=== PATIENT | female | born 1955 | race Caucasian/White ===

== ENCOUNTER 2020-10-16 09:15 | Inpatient (IN) | payer MEDICARE, OTHER ==
[2020-10-16] MEDS ORDERED: Sodium Chloride 0.9% 10 ML Syringe FLUSH PRN ×3 (10:01→16:16)
[2020-10-16] MEDS ORDERED: Albuterol/Ipratropium 4 GM Inhalation Spray INH STA (10:03)
--- NOTE | 2020-10-16 10:06 | EDM.PDOC ---
ED HPI GENERAL MEDICAL PROBLEM - General Chief Complaint: Respiratory Problem Stated Complaint: COUGHED UP BLOOD THIS AM Time Seen by Provider: 10/16/20 09:56 Source of Information: Reports: Patient, Family, RN Notes Reviewed History Limitations: Reports: No Limitations - History of Present Illness INITIAL COMMENTS - FREE TEXT/NARRATIVE: 65-year-old female presents emergency department a complaint of shortness of breath and coughing up blood. Does have known history of COPD received her Covid shot middle of September this was the second 1. She states over the last couple days been feeling more short of breath has had chills at night no chest pain no nausea vomiting - Related Data Allergies Allergy/AdvReac Type Severity Reaction Status Date / Time Iodinated Contrast Media Allergy Severe Anaphylactic Verified 10/16/20 12:21 [Iodinated Contrast- Oral Shock and IV Dye] oxycodone Allergy Severe Difficulty Verified 10/16/20 12:21 Breathing codeine Allergy Hives Verified 06/03/18 17:39 glimepiride [From Amaryl] Allergy Facial Verified 06/03/18 17:39 Swelling hydroxyzine [From Vistaril] Allergy Facial Verified 06/03/18 17:39 Swelling iodine Allergy Blisters Verified 06/03/18 17:39 povidone-iodine Allergy Blisters Verified 06/03/18 17:39 [From Betadine] soap [From Betadine] Allergy Blisters Verified 06/03/18 17:39 Sulfa (Sulfonamide Allergy Hives Verified 06/03/18 17:39 Antibiotics) Home Meds: Home Meds Celecoxib 1 tab PO DAILY PRN 06/03/18 [History] Cyclobenzaprine [Flexeril] 1 tab PO BEDTIME 06/03/18 [History] Furosemide 1 tab PO ASDIRECTED 06/03/18 [History] Gabapentin [Neurontin] 1 cap PO ASDIRECTED 06/03/18 [History] Modafinil [Provigil] 1 tab PO BID 06/03/18 [History] Pramipexole [Mirapex] 1 tab PO BID 06/03/18 [History] Warfarin Sodium [Jantoven] 1 each PO ASDIRECTED 06/03/18 [History] EPINEPHrine HCl in 0.9 % NaCL [Epinephrine 1 mg/10 ml-Ns Syr] 1 ea IM DAILY PRN 10/16/20 [History] Empagliflozin [Jardiance] 1 tab PO DAILY 10/16/20 [History] Fluticasone/Salmeterol [Advair 100-50] 1 puff INH BID 10/16/20 [History] Hydrocodone/Acetaminophen [Hydrocodon-Acetaminophn 10-325] 1 tab PO Q4H PRN 10/16/20 [History] Metoprolol Tartrate 25 mg PO BID 10/16/20 [History] OLANZapine [Olanzapine] 5 mg PO BID 10/16/20 [History] Past Medical History HEENT History: Reports: Impaired Vision Cardiovascular History: Reports: Afib, Arrhythmia Respiratory History: Reports: Sleep Apnea, Other (See Below) Other Respiratory History: histoplasmosis, lung nodule that has changed Gastrointestinal History: Reports: Chronic Diarrhea, Colon Polyp, Diverticulosis, GERD Genitourinary History: Reports: Acute Renal Failure, UTI, Recurrent EDGE INKER HEELS History: Reports: , Spontaneous Musculoskeletal History: Reports: Fibromyalgia Other Musculoskeletal History: ostepenia Neurological History: Reports: MS Psychiatric History: Reports: Depression Endocrine/Metabolic History: Reports: Diabetes, Type II, Obesity/BMI 30+ Do You Have Enough Pump Supplies for Your Hospital Stay: No Hematologic History: Reports: Anticoagulation Therapy Oncologic (Cancer) History: Reports: None Dermatologic History: Reports: Other (See Below) Other Dermatologic History: bolous pepagoid (blisters on legs) - Past Surgical History HEENT Surgical History: Reports: Tonsillectomy Cardiovascular Surgical History: Reports: Pacer Other Cardiovascular Surgeries/Procedures: pacer for vfib with defibrilator - has not gone off. GI Surgical History: Reports: Appendectomy, Cholecystectomy, Colonoscopy, Hernia Repair/Other Female Surgical History: Reports: Hysterectomy, Salpingo-Oophorectomy Musculoskeletal Surgical History: Reports: Knee Replacement, Shoulder Surgery, Other (See Below) Other Musculoskeletal Surgeries/Procedures:: 2 surgeries on left shoulder for torn rotator, 3 surgeries on right shoulder. Social & Family History - Family History Family Medical History: No Pertinent Family History - Caffeine Use Caffeine Use: Reports: Coffee ED ROS GENERAL - Review of Systems Review Of Systems: See Below Constitutional: Reports: Chills HEENT: Reports: No Symptoms Respiratory: Reports: Shortness of Breath, Cough, Hemoptysis Cardiovascular: Reports: Dyspnea on Exertion. Denies: Chest Pain GI/Abdominal: Reports: No Symptoms ED EXAM, GENERAL - Physical Exam Exam: See Below Exam Limited By: No Limitations General Appearance: Alert, WD/WN, No Apparent Distress Respiratory/Chest: No Respiratory Distress, Decreased Breath Sounds, Crackles Cardiovascular: No Murmur, Irregularly Irregular GI/Abdominal: Soft, Non-Tender #1 Interpretation EKG Date: 10/16/20 Time: 10:45 Rhythm: A-Fib [place]: LAD-Left Rowland Deviation P-Wave: Absent QRS: Normal ST-T: Normal QT: Normal Comparison: NA - No Prior EKG Course - Vital Signs Last Recorded V/S: Last Vital Signs Temp 99.3 F 10/16/20 09:33 Pulse 60 10/16/20 12:45 Resp 22 H 10/16/20 09:33 BP 112/60 10/16/20 12:47 Pulse Ox 95 10/16/20 12:45 - Orders/Labs/Meds Orders: Active Orders 24 hr Category Date Time Status EKG Documentation Completion [RC] ASDIRECTED Care 10/16/20 10:01 Active Peripheral IV Care [RC] . DIRECTED Care 10/16/20 10:01 Active RT Post Treatment Assessment [RC] Click to Edit Care 10/16/20 10:03 Active CRP [C-REACTIVE PROTEIN] [CHEM] Stat Lab 10/16/20 14:12 Ordered CULTURE BLOOD [BC] Urgent Lab 10/16/20 13:20 Ordered CULTURE BLOOD [BC] Urgent Lab 10/16/20 13:20 Ordered LACTIC ACID [CHEM] Stat Lab 10/16/20 14:12 Ordered PROCALCITONIN [CHEM] Stat Lab 10/16/20 14:12 Ordered Sodium Chloride 0.9% [Saline Flush] Med 10/16/20 10:01 Active 10 ml FLUSH ASDIRECTED PRN Blood Culture x2 Reflex Set [OM.PC] Urgent Oth 10/16/20 13:20 Ordered Peripheral IV Insertion Adult [OM.PC] Urgent Oth 10/16/20 10:01 Ordered EKG 12 Lead [EK] Urgent Ther 10/16/20 10:01 Ordered Medication Orders Sodium Chloride (Sodium Chloride 0.9% 10 Ml Syringe) 10 ml FLUSH ASDIRECTED PRN PRN Reason: Keep Vein Open Last Admin: 10/16/20 12:30 Dose: 10 ml Documented by: [email or web address] Labs: Laboratory Tests 10/16/20 10/16/20 10/16/20 Range/Units 10:01 10:03 10:39 WBC 13.7 H (4.5-11.0) K/uL RBC 3.69 (3.30-5.50) M/uL Hgb 11.1 L (12.0-15.0) g/dL Hct 35.9 L (36.0-48.0) % MCV 97 (80-98) fL MCH 30 (27-31) pg MCHC 31 L (32-36) % Plt Count 254 (150-400) K/uL Neut % (Auto) 84 H (36-66) % Lymph % (Auto) 5 L (24-44) % [place] % (Auto) 10 H (2-6) % Eos % (Auto) 0 L (2-4) % Baso % (Auto) 0 (0-1) % PT 21.9 H (9.5-12.0) sec INR 2.04 H (0.80-1.20) D-Dimer, Quantitative (0.0-500.0) ng/mL Sodium (140-148) mmol/L Potassium (3.6-5.2) mmol/L Chloride (100-108) mmol/L Carbon Dioxide (21-32) mmol/L Anion Gap (5.0-14.0) mmol/L BUN (7-18) mg/dL Creatinine (0.6-1.0) mg/dL Est Cr Clr Drug Dosing mL/min Estimated GFR (MDRD) (>60) Glucose (74-106) mg/dL Calcium (8.5-10.1) mg/dL Total Bilirubin (0.2-1.0) mg/dL AST (15-37) U/L ALT (12-78) U/L Alkaline Phosphatase (46-116) U/L Troponin I (0.000-0.056) ng/mL NT-Pro-B Natriuret Pep (5-125) pg/mL Total Protein (6.4-8.2) g/dL Albumin (3.4-5.0) g/dL Globulin (2.3-3.5) g/dL Albumin/Globulin Ratio (1.2-2.2) Influenza Type A RNA Negative (NEGATIVE) RSV RNA (INAAT) Negative (NEGATIVE) Influenza Type B RNA Negative (NEGATIVE) SARS-CoV-2 RNA (DAO) Negative (NEGATIVE) 10/16/20 10/16/20 10/16/20 Range/Units 10:39 10:39 10:39 WBC (4.5-11.0) K/uL RBC (3.30-5.50) M/uL Hgb (12.0-15.0) g/dL Hct (36.0-48.0) % MCV (80-98) fL MCH (27-31) pg MCHC (32-36) % Plt Count (150-400) K/uL Neut % (Auto) (36-66) % Lymph % (Auto) (24-44) % [place] % (Auto) (2-6) % Eos % (Auto) (2-4) % Baso % (Auto) (0-1) % PT (9.5-12.0) sec INR (0.80-1.20) D-Dimer, Quantitative 610.29 H (0.0-500.0) ng/mL Sodium 141 (140-148) mmol/L Potassium 4.0 (3.6-5.2) mmol/L Chloride 102 (100-108) mmol/L Carbon Dioxide 29 (21-32) mmol/L Anion Gap 10.1 (5.0-14.0) mmol/L BUN 25 H (7-18) mg/dL Creatinine 1.3 H (0.6-1.0) mg/dL Est Cr Clr Drug Dosing 38.25 mL/min Estimated GFR (MDRD) 41 L (>60) Glucose 150 H (74-106) mg/dL Calcium 8.7 (8.5-10.1) mg/dL Total Bilirubin 0.9 (0.2-1.0) mg/dL AST 24 (15-37) U/L ALT 23 (12-78) U/L Alkaline Phosphatase 118 H (46-116) U/L Troponin I < 0.017 (0.000-0.056) ng/mL NT-Pro-B Natriuret Pep 6958 H (5-125) pg/mL Total Protein 6.5 (6.4-8.2) g/dL Albumin 3.1 L (3.4-5.0) g/dL Globulin 3.4 (2.3-3.5) g/dL Albumin/Globulin Ratio 0.9 L (1.2-2.2) Influenza Type A RNA (NEGATIVE) RSV RNA (INAAT) (NEGATIVE) Influenza Type B RNA (NEGATIVE) SARS-CoV-2 RNA (DAO) (NEGATIVE) Meds: Medications Generic Name Dose Route Start Last Admin Trade Name Freq PRN Reason Stop Dose Admin Sodium Chloride 10 ml 10/16/20 10:01 10/16/20 12:30 Sodium Chloride 0.9% 10 Ml Syringe FLUSH 10 ml ASDIRECTED PRN Administration Keep Vein Open Discontinued Medications Generic Name Dose Route Start Last Admin Trade Name Freq PRN Reason Stop Dose Admin Albuterol/Ipratropium 1 gm 10/16/20 10:03 10/16/20 10:30 Albuterol/Ipratropium 4 Gm Inhalation [place] INH 10/16/20 10:04 1 gram NOW STA Administration Bumetanide 2 mg 10/16/20 12:35 10/16/20 12:47 Bumetanide 1 Mg/4 Ml Mdv IVPUSH 10/16/20 12:36 2 mg ONETIME ONE Administration Fentanyl 50 mcg 10/16/20 11:19 10/16/20 11:31 Fentanyl 100 Mcg/2 Ml Sdv IVPUSH 10/16/20 11:20 50 mcg ONETIME ONE Administration Azithromycin 500 mg/ Sodium 250 mls @ 250 mls/hr 10/16/20 13:21 10/16/20 14:25 Chloride IV 10/16/20 14:20 250 mls/hr ONETIME ONE Administration Ceftriaxone Sodium 1 gm/ 50 mls @ 100 mls/hr 10/16/20 13:21 10/16/20 13:50 Sodium Chloride IV 10/16/20 13:50 100 mls/hr ONETIME ONE Administration Lorazepam 1 mg 10/16/20 12:35 10/16/20 12:47 Lorazepam 2 Mg/Ml Sdv IVPUSH 10/16/20 12:36 1 mg ONETIME ONE Administration Nitroglycerin 0.4 mg 10/16/20 12:35 10/16/20 12:47 Nitroglycerin 0.4 Mg Tab.Sl SL 10/16/20 12:36 0.4 mg ONETIME ONE Administration Sodium Chloride 10 ml 10/16/20 10:01 Sodium Chloride 0.9% 10 Ml Syringe FLUSH ASDIRECTED PRN Keep Vein Open Departure - Departure Time of Disposition: 14:28 Disposition: Home, Self-Care 01 Condition: Fair Clinical Impression: Community acquired pneumonia Qualifiers: Laterality: right Lung location: lower lobe of lung Qualified Code(s): J18.9 - Pneumonia, unspecified organism - Discharge Information Referrals: PCP,None [Primary Care Provider] - Forms: ED Department Discharge Sepsis Event Note (ED) - Evaluation Sepsis Screening Result: No Definite Risk - Focused Exam Vital Signs: Vital Signs Temp Pulse Resp BP BP Pulse Ox 10/16/20 12:47 112/60 10/16/20 12:45 60 112/60 95 10/16/20 12:22 60 113/61 91 L 10/16/20 09:33 99.3 F 60 22 H 117/51 L 93 L - My Orders Last 24 Hours: My Active Orders 10/16/20 10:01 EKG Documentation Completion [RC] ASDIRECTED Peripheral IV Care [RC] . DIRECTED Sodium Chloride 0.9% [Saline Flush] 10 ml FLUSH ASDIRECTED PRN Peripheral IV Insertion Adult [OM.PC] Urgent EKG 12 Lead [EK] Urgent 10/16/20 10:03 RT Post Treatment Assessment [RC] Click to Edit 10/16/20 13:20 CULTURE BLOOD [BC] Urgent CULTURE BLOOD [BC] Urgent Blood Culture x2 Reflex Set [OM.PC] Urgent 10/16/20 14:12 CRP [C-REACTIVE PROTEIN] [CHEM] Stat LACTIC ACID [CHEM] Stat PROCALCITONIN [CHEM] Stat - Assessment/Plan Last 24 Hours: My Active Orders 10/16/20 10:01 EKG Documentation Completion [RC] ASDIRECTED Peripheral IV Care [RC] . DIRECTED Sodium Chloride 0.9% [Saline Flush] 10 ml FLUSH ASDIRECTED PRN Peripheral IV Insertion Adult [OM.PC] Urgent EKG 12 Lead [EK] Urgent 10/16/20 10:03 RT Post Treatment Assessment [RC] Click to Edit 10/16/20 13:20 CULTURE BLOOD [BC] Urgent CULTURE BLOOD [BC] Urgent Blood Culture x2 Reflex Set [OM.PC] Urgent 10/16/20 14:12 CRP [C-REACTIVE PROTEIN] [CHEM] Stat LACTIC ACID [CHEM] Stat PROCALCITONIN [CHEM] Stat Plan: Assessment Acuity = acute Site and laterality = right lower lobe pneumonia Etiology = probable bacterial cause Manifestations = hypoxia Location of injury = Home Lab values = WBC elevated 13.7 consistent leukocytosis, INR therapeutic at 2.04 D-dimer elevated 610 of unclear significance creatinine elevated 1.3 consistent chronic renal failure stage G3 B glucose elevated 150 consistent with hyperglycemia troponin is negative BNP elevated 6958 consistent with fluid overload type pattern Covid was negative influenza RSV both negative chest x-ray shows cardiomegaly with right lower lobe pneumonia, CT scan consistent with right lower lobe pneumonia there is a 1.7 centimeters granuloma right lung field consistent with histoplasmosis diagnosis Plan Blood cultures have been drawn antibiotics Rocephin and azithromycin started, hospitalist contacted at [phone] kindly agreed to come evaluate the patient emergency department for admission blood work of lactic acid procalcitonin and CRP pending This note was dictated using [employer] voice recognition software please call with any questions on syntax or grammar.
[2020-10-16 10:55] LABS: CORONAVIRUS COVID-19 NAA NEGATIVE (NEGATIVE)
[2020-10-16] MEDS ORDERED: fentaNYL 100 MCG/2 ML SDV IVPUSH ONE (11:19)
[2020-10-16] MEDS ORDERED: Nitroglycerin 0.4 MG Tab.SL SL ONE (12:35)
[2020-10-16] MEDS ORDERED: LORazepam 2 MG/ML SDV IVPUSH ONE (12:35)
[2020-10-16] MEDS ORDERED: Bumetanide 1 MG/4 ML MDV IVPUSH ONE (12:35)
--- NOTE | 2020-10-16 13:07 | CR ---
CHEST: 2 view CLINICAL HISTORY:SOB COMPARISON:None FINDINGS: Heart size is mildly enlarged. Patient has permanent cardiac pacer. Pulmonary vascularity is mildly cephalized. There are some streaky right lower lobe infiltrate. There is a 2 cm nodule in the superior segment of the right lower lobe. IMPRESSION: Right lower lobe pneumonia There may be some pulmonary venous hypertension 2 cm well-circumscribed mass in the superior segment of the right lower lobe. If there are prior studies isn't be helpful. If not, CT chest recommended
[2020-10-16] MEDS ORDERED: Azithromycin 500 MG in Sodium Chloride 0.9% 250 ML IV ONE (13:21)
[2020-10-16] MEDS ORDERED: cefTRIAXone 1 GM in Sodium Chloride 0.9% 50 ML IV ONE (13:21)
--- NOTE | 2020-10-16 14:10 | CT ---
Chest wo Cont CLINICAL HISTORY: PNA TECHNIQUE: Transverse scans were obtained from the thoracic inlet to the lung bases without contrast. Auto dosage reduction in intervertebral reconstruction techniques were employed COMPARISONS: None FINDINGS: There is patchy infiltrate in the right lower lobe with some consolidation in the posterior basal segment there are some groundglass opacities in both upper lobes. In the superior segment of the right lower lobe there is a round well-circumscribed calcified nodule measuring 1.7 cm. This is consistent with a granuloma. There are some calcified nodes in the right hilum. There are a few scattered nonspecific lymph nodes in the mediastinum. There are no pleural effusions. Patient has had previous gastric surgery and cholecystectomy. IMPRESSION: 1.7 cm calcified nodule in the right lower lobe consistent with a granuloma. Pneumonic infiltrate and areas of consolidation in the right lower lobe Scattered groundglass opacities in both upper lung chacko may represent some superimposed pneumonitis
--- NOTE | 2020-10-16 14:42 | PCM.HP.2 ---
H&P History of Present Illness - General Date of Service: 10/16/20 Admit Problem/Dx: Admission Diagnosis/Problem Admission Diagnosis/Problem Pneumonia Source of Information: Patient, Family, Provider, RN Notes Reviewed History Limitations: Reports: No Limitations - History of Present Illness Initial Comments - Free Text/Narative: Ms. Machado is a 65-year-old woman who was admitted through the emergency department with weakness and shortness of breath secondary to right lung pneumonia. She reports a history of increased shortness of breath over the past few weeks, significantly worse in the last 24 hours. She has had chills and sweats with shortness of breath and cough. This morning with her cough she did experience a small amount of hemoptysis. On evaluation in the emergency department she is noted to be hypoxic with elevation in white blood cell count. CT scan of the chest shows evidence of right lung infiltrate consistent with pneumonia. Blood cultures have been obtained and she was started on IV antibiotic therapy. Right Back Pain Score (Numeric/FACES): 7 - Related Data Allergies/Adverse Reactions: Allergies Allergy/AdvReac Type Severity Reaction Status Date / Time Iodinated Contrast Media Allergy Severe Anaphylactic Verified 10/16/20 12:21 [Iodinated Contrast- Oral Shock and IV Dye] oxycodone Allergy Severe Difficulty Verified 10/16/20 12:21 Breathing codeine Allergy Hives Verified 06/03/18 17:39 glimepiride [From Amaryl] Allergy Facial Verified 06/03/18 17:39 Swelling hydroxyzine [From Vistaril] Allergy Facial Verified 06/03/18 17:39 Swelling iodine Allergy Blisters Verified 06/03/18 17:39 povidone-iodine Allergy Blisters Verified 06/03/18 17:39 [From Betadine] soap [From Betadine] Allergy Blisters Verified 06/03/18 17:39 Sulfa (Sulfonamide Allergy Hives Verified 06/03/18 17:39 Antibiotics) Home Medications: Home Meds Celecoxib 1 tab PO DAILY PRN 06/03/18 [History] Cyclobenzaprine [Flexeril] 1 tab PO BEDTIME 06/03/18 [History] Furosemide 1 tab PO ASDIRECTED 06/03/18 [History] Gabapentin [Neurontin] 1 cap PO ASDIRECTED 06/03/18 [History] Modafinil [Provigil] 1 tab PO BID 06/03/18 [History] Pramipexole [Mirapex] 1 tab PO BID 06/03/18 [History] Warfarin Sodium [Jantoven] 1 each PO ASDIRECTED 06/03/18 [History] EPINEPHrine HCl in 0.9 % NaCL [Epinephrine 1 mg/10 ml-Ns Syr] 1 ea IM DAILY PRN 10/16/20 [History] Empagliflozin [Jardiance] 1 tab PO DAILY 10/16/20 [History] Fluticasone/Salmeterol [Advair 100-50] 1 puff INH BID 10/16/20 [History] Hydrocodone/Acetaminophen [Hydrocodon-Acetaminophn 10-325] 1 tab PO Q4H PRN 10/16/20 [History] Metoprolol Tartrate 25 mg PO BID 10/16/20 [History] OLANZapine [Olanzapine] 5 mg PO BID 10/16/20 [History] Past Medical History HEENT History: Reports: Impaired Vision Cardiovascular History: Reports: Afib, Arrhythmia Respiratory History: Reports: Sleep Apnea, Other (See Below) Other Respiratory History: histoplasmosis, lung nodule that has changed Gastrointestinal History: Reports: Chronic Diarrhea, Colon Polyp, Diverticulosis, GERD Genitourinary History: Reports: Acute Renal Failure, UTI, Recurrent COLLATERAL CLERK History: Reports: , Spontaneous Musculoskeletal History: Reports: Fibromyalgia Other Musculoskeletal History: ostepenia Neurological History: Reports: MS Psychiatric History: Reports: Depression Endocrine/Metabolic History: Reports: Diabetes, Type II, Obesity/BMI 30+ Do You Have Enough Pump Supplies for Your Hospital Stay: No Hematologic History: Reports: Anticoagulation Therapy Oncologic (Cancer) History: Reports: None Dermatologic History: Reports: Other (See Below) Other Dermatologic History: bolous pepagoid (blisters on legs) - Past Surgical History HEENT Surgical History: Reports: Tonsillectomy Cardiovascular Surgical History: Reports: Pacer Other Cardiovascular Surgeries/Procedures: pacer for vfib with defibrilator - has not gone off. GI Surgical History: Reports: Appendectomy, Cholecystectomy, Colonoscopy, Hernia Repair/Other Female Surgical History: Reports: Hysterectomy, Salpingo-Oophorectomy Musculoskeletal Surgical History: Reports: Knee Replacement, Shoulder Surgery, Other (See Below) Other Musculoskeletal Surgeries/Procedures:: 2 surgeries on left shoulder for torn rotator, 3 surgeries on right shoulder. Social & Family History - Family History Family Medical History: No Pertinent Family History - Caffeine Use Caffeine Use: Reports: Coffee H&P Review of Systems - Review of Systems: Review Of Systems: See Below General: Reports: Chills, Weakness, Fatigue, Diaphoresis, Decreased Appetite HEENT: Reports: No Symptoms Pulmonary: Reports: Shortness of Breath, Cough, Sputum, Hemoptysis. Denies: Wheezing, Pleuritic Chest Pain Cardiovascular: Reports: Dyspnea on Exertion. Denies: Chest Pain, Palpitations, Orthopnea, PND, Edema, Lightheadedness Gastrointestinal: Reports: No Symptoms Genitourinary: Reports: No Symptoms Musculoskeletal: Reports: No Symptoms Skin: Reports: No Symptoms Psychiatric: Reports: No Symptoms Neurological: Reports: No Symptoms Hematologic/Lymphatic: Reports: No Symptoms Immunologic: Reports: No Symptoms Exam - Exam Exam: See Below - Vital Signs Vital Signs: Last Vital Signs Temp 99.3 F 10/16/20 09:33 Pulse 60 10/16/20 12:45 Resp 22 H 10/16/20 09:33 BP 112/60 10/16/20 12:47 Pulse Ox 95 10/16/20 12:45 Weight: 526 lb 14.476 oz - Exam Quality Assessment: Supplemental Oxygen, DVT Prophylaxis General: Alert, Oriented, Cooperative, Moderate Distress HEENT: Conjunctiva Clear, Hearing Intact, Mucosa Moist & [place], Normal Nasal Septum, Posterior Pharynx Clear, Pupils Equal Neck: Supple, Trachea Midline, +2 Carotid Pulse wo Bruit Lungs: Decreased Breath Sounds, Rales. No: Rhonchi, Wheezing Cardiovascular: Regular Rate, Regular Rhythm, Normal S1, Normal S2. No: Systolic Murmur, Diastolic Murmur GI/Abdominal Exam: Soft, Non-Tender, No Organomegaly, No Distention Extremities: Non-Tender, No Pedal Edema Skin: Warm, Dry, Intact Neurological: Cranial Nerves Intact, Strength Equal Bilateral, Normal Speech, Normal Tone, Sensation Intact. No: Focal Deficit Neuro Extensive - Mental Status: Alert, Oriented x3, Normal Mood/Affect, Normal Cognition, Memory Intact - Patient Data Lab Results Last 24 hrs: Laboratory Results - last 24 hr 10/16/20 10/16/20 10/16/20 Range/Units 10:01 10:03 10:36 WBC (4.5-11.0) K/uL RBC (3.30-5.50) M/uL Hgb (12.0-15.0) g/dL Hct (36.0-48.0) % MCV (80-98) fL MCH (27-31) pg MCHC (32-36) % Plt Count (150-400) K/uL Neut % (Auto) (36-66) % Lymph % (Auto) (24-44) % Dixon % (Auto) (2-6) % Eos % (Auto) (2-4) % Baso % (Auto) (0-1) % PT 21.9 H (9.5-12.0) sec INR 2.04 H (0.80-1.20) D-Dimer, Quantitative (0.0-500.0) ng/mL Sodium (140-148) mmol/L Potassium (3.6-5.2) mmol/L Chloride (100-108) mmol/L Carbon Dioxide (21-32) mmol/L Anion Gap (5.0-14.0) mmol/L BUN (7-18) mg/dL Creatinine (0.6-1.0) mg/dL Est Cr Clr Drug Dosing mL/min Estimated GFR (MDRD) (>60) Glucose (74-106) mg/dL Lactic Acid 1.0 (0.4-2.0) mmol/L Calcium (8.5-10.1) mg/dL Total Bilirubin (0.2-1.0) mg/dL AST (15-37) U/L ALT (12-78) U/L Alkaline Phosphatase (46-116) U/L Troponin I (0.000-0.056) ng/mL C-Reactive Protein (0.0-0.3) mg/dL NT-Pro-B Natriuret Pep (5-125) pg/mL Total Protein (6.4-8.2) g/dL Albumin (3.4-5.0) g/dL Globulin (2.3-3.5) g/dL Albumin/Globulin Ratio (1.2-2.2) Influenza Type A RNA Negative (NEGATIVE) RSV RNA (INAAT) Negative (NEGATIVE) Influenza Type B RNA Negative (NEGATIVE) SARS-CoV-2 RNA (DAO) Negative (NEGATIVE) 04/12/21 04/12/21 04/12/21 Range/Units 10:36 10:39 10:39 WBC 13.7 H (4.5-11.0) K/uL RBC 3.69 (3.30-5.50) M/uL Hgb 11.1 L (12.0-15.0) g/dL Hct 35.9 L (36.0-48.0) % MCV 97 (80-98) fL MCH 30 (27-31) pg MCHC 31 L (32-36) % Plt Count 254 (150-400) K/uL Neut % (Auto) 84 H (36-66) % Lymph % (Auto) 5 L (24-44) % Dixon % (Auto) 10 H (2-6) % Eos % (Auto) 0 L (2-4) % Baso % (Auto) 0 (0-1) % PT (9.5-12.0) sec INR (0.80-1.20) D-Dimer, Quantitative 610.29 H (0.0-500.0) ng/mL Sodium (140-148) mmol/L Potassium (3.6-5.2) mmol/L Chloride (100-108) mmol/L Carbon Dioxide (21-32) mmol/L Anion Gap (5.0-14.0) mmol/L BUN (7-18) mg/dL Creatinine (0.6-1.0) mg/dL Est Cr Clr Drug Dosing mL/min Estimated GFR (MDRD) (>60) Glucose (74-106) mg/dL Lactic Acid (0.4-2.0) mmol/L Calcium (8.5-10.1) mg/dL Total Bilirubin (0.2-1.0) mg/dL AST (15-37) U/L ALT (12-78) U/L Alkaline Phosphatase (46-116) U/L Troponin I (0.000-0.056) ng/mL C-Reactive Protein 11.99 H (0.0-0.3) mg/dL NT-Pro-B Natriuret Pep (5-125) pg/mL Total Protein (6.4-8.2) g/dL Albumin (3.4-5.0) g/dL Globulin (2.3-3.5) g/dL Albumin/Globulin Ratio (1.2-2.2) Influenza Type A RNA (NEGATIVE) RSV RNA (INAAT) (NEGATIVE) Influenza Type B RNA (NEGATIVE) SARS-CoV-2 RNA (DAO) (NEGATIVE) 10/16/20 10/16/20 Range/Units 10:39 10:39 WBC (4.5-11.0) K/uL RBC (3.30-5.50) M/uL Hgb (12.0-15.0) g/dL Hct (36.0-48.0) % MCV (80-98) fL MCH (27-31) pg MCHC (32-36) % Plt Count (150-400) K/uL Neut % (Auto) (36-66) % Lymph % (Auto) (24-44) % Dixon % (Auto) (2-6) % Eos % (Auto) (2-4) % Baso % (Auto) (0-1) % PT (9.5-12.0) sec INR (0.80-1.20) D-Dimer, Quantitative (0.0-500.0) ng/mL Sodium 141 (140-148) mmol/L Potassium 4.0 (3.6-5.2) mmol/L Chloride 102 (100-108) mmol/L Carbon Dioxide 29 (21-32) mmol/L Anion Gap 10.1 (5.0-14.0) mmol/L BUN 25 H (7-18) mg/dL Creatinine 1.3 H (0.6-1.0) mg/dL Est Cr Clr Drug Dosing 38.25 mL/min Estimated GFR (MDRD) 41 L (>60) Glucose 150 H (74-106) mg/dL Lactic Acid (0.4-2.0) mmol/L Calcium 8.7 (8.5-10.1) mg/dL Total Bilirubin 0.9 (0.2-1.0) mg/dL AST 24 (15-37) U/L ALT 23 (12-78) U/L Alkaline Phosphatase 118 H (46-116) U/L Troponin I < 0.017 (0.000-0.056) ng/mL C-Reactive Protein (0.0-0.3) mg/dL NT-Pro-B Natriuret Pep 6958 H (5-125) pg/mL Total Protein 6.5 (6.4-8.2) g/dL Albumin 3.1 L (3.4-5.0) g/dL Globulin 3.4 (2.3-3.5) g/dL Albumin/Globulin Ratio 0.9 L (1.2-2.2) Influenza Type A RNA (NEGATIVE) RSV RNA (INAAT) (NEGATIVE) Influenza Type B RNA (NEGATIVE) SARS-CoV-2 RNA (DAO) (NEGATIVE) Result Diagrams: 10/16/20 10:39 10/16/20 10:39 Sepsis Event Note - Evaluation Sepsis Screening Result: No Definite Risk - Focused Exam Vital Signs: Vital Signs Temp Pulse Resp BP BP Pulse Ox 10/16/20 12:47 112/60 10/16/20 12:45 60 112/60 95 10/16/20 12:22 60 113/61 91 L 10/16/20 09:33 99.3 F 60 22 H 117/51 L 93 L *Q Meaningful Use (ADM) - VTE *Q VTE Pharmacological Contraindications *Q: High INR Value - VTE Risk Assess *Q Each Risk Factor Represents 1 Point: Obesity ( BMI > 25 kg/m2), Serious lung disease including pneumonia Total Score 1 Point Risk Factors: 2 Each Risk Factor Represents 2 Points: Age 60 - 74 Years Total Score 2 Point Risk Factors: 2 Each Risk Factor Represents 3 Points: None Total Score 3 Point Risk Factors: 0 Each Risk Factor Represents 5 Points: None Total Score 5 Point Risk Factors: 0 Venous Thromboembolism Risk Factor Score *Q: 4 Problem List Initiated/Reviewed/Updated: Yes Orders Last 24hrs: Active Orders 24 hr Category Date Time Status Patient Status Manage Transfer [TRANSFER] Routine ADT 10/16/20 14:29 Ordered EKG Documentation Completion [RC] ASDIRECTED Care 10/16/20 10:01 Active Peripheral IV Care [RC] . DIRECTED Care 10/16/20 10:01 Active RT Post Treatment Assessment [RC] Click to Edit Care 10/16/20 10:03 Active CULTURE BLOOD [BC] Urgent Lab 10/16/20 14:00 Received CULTURE BLOOD [BC] Urgent Lab 10/16/20 14:08 Received PROCALCITONIN [CHEM] Stat Lab 10/16/20 10:36 Received Sodium Chloride 0.9% [Saline Flush] Med 10/16/20 10:01 Active 10 ml FLUSH ASDIRECTED PRN Blood Culture x2 Reflex Set [OM.PC] Urgent Oth 10/16/20 13:20 Ordered Peripheral IV Insertion Adult [OM.PC] Urgent Oth 10/16/20 10:01 Ordered Resuscitation Status Routine Resus Stat 10/16/20 14:33 Ordered EKG 12 Lead [EK] Urgent Ther 10/16/20 10:01 Ordered Medication Orders Sodium Chloride (Sodium Chloride 0.9% 10 Ml Syringe) 10 ml FLUSH ASDIRECTED PRN PRN Reason: Keep Vein Open Last Admin: 10/16/20 12:30 Dose: 10 ml Documented by: TAYA Assessment/Plan Comment:: ASSESSMENT AND PLAN RIGHT LUNG PNEUMONIA WITH HYPOXIA-worsening shortness of breath over the last 24 hours with an episode of hemoptysis this morning. White blood cell count is elevated and CT scan shows evidence of right lung pneumonia. -Blood cultures pending -Supplemental oxygen as needed -Nebulizer therapy as needed -IV antibiotic therapy with ceftriaxone and doxycycline pending culture results TYPE 2 DIABETES MELLITUS -Continue outpatient medications -4 times daily glucometers -Low-dose sliding scale Humalog HISTORY OF PAROXYSMAL ATRIAL FIBRILLATION-on long-term oral anticoagulation with warfarin -Continue usual dosing of warfarin -Recheck INR in a.m. MAINTENANCE ISSUES -DVT prophylaxis; current therapy with warfarin should provide adequate DVT prophylaxis -GI prophylaxis; not indicated -Higgins catheter; not indicated -Nutrition; consistent carbohydrate diet -Nicotine dependence; not required CODE STATUS-full code ADMISSION STATUS-patient will be admitted to inpatient status, expect at least a 2 night hospital stay for evaluation and management of problems as outlined above. At the time of this admission I do not reasonably expected evaluation and management of this problem will require more than a 96 hour hospital stay. DISPOSITION-anticipate discharge to home after the hospital stay. - Mortality Measure Prognosis:: Good
[2020-10-16] MEDS ORDERED: Glucose Gel 15 GM in 37.5 GM Tube PO PRN (16:16)
[2020-10-16] MEDS ORDERED: Albuterol 0.083% 2.5 MG/3 ML Neb Soln NEB PRN (16:16)
[2020-10-16] MEDS ORDERED: Polyethylene Glycol 3350 Powder 17 GM Packet PO PRN (16:16)
[2020-10-16] MEDS ORDERED: 50% Dextrose in Water 50 ML Syringe IV PRN (16:16)
[2020-10-16] MEDS ORDERED: Ondansetron 4 MG/2 ML SDV IV PRN (16:16)
[2020-10-16] MEDS ORDERED: Gabapentin 300 MG Cap PO SCH ×2 (16:16→21:00)
[2020-10-16] MEDS ORDERED: Furosemide 40 MG Tab PO SCH (16:16)
[2020-10-16] MEDS: Sodium Chloride 0.9% 1,000 ML IV SCH (17:20)
[2020-10-16] MEDS: Furosemide 40 MG Tab PO SCH (17:21)
[2020-10-16] MEDS: Acetaminophen/HYDROcodone 325-10 MG Tab PO PRN ×2 (17:21→21:16)
[2020-10-16] MEDS: Doxycycline 100 MG in Sodium Chloride 0.9% 100 ML IV SCH (17:27)
[2020-10-16] MEDS: Insulin Lispro 100 Unit/ML 3 ML KwikPen SUBCUT SCH ×2 (17:57→21:10)
[2020-10-16] MEDS: Albuterol/Ipratropium 3.0-0.5 MG/3 ML Neb Soln NEB SCH (21:04)
[2020-10-16] MEDS: OLANZapine 5 MG Tab PO SCH (21:04)
[2020-10-16] MEDS: Modafinil 100 MG Tab PO SCH (21:04)
[2020-10-16] MEDS: Pramipexole 0.5 MG Tab PO SCH (21:04)
[2020-10-16] MEDS: Cyclobenzaprine 10 MG Tab PO SCH (21:04)
[2020-10-16] MEDS: Metoprolol Tartrate 25 MG Tab PO SCH (21:05)
[2020-10-16] MEDS: Formoterol/Mometasone 100-5 MCG 8.8 GM Inhaler IH SCH (21:09)
[2020-10-17] MEDS: Sodium Chloride 0.9% 1,000 ML IV SCH (04:21)
[2020-10-17] MEDS: Doxycycline 100 MG in Sodium Chloride 0.9% 100 ML IV SCH ×2 (05:17→17:46)
[2020-10-17] MEDS: Albuterol/Ipratropium 3.0-0.5 MG/3 ML Neb Soln NEB SCH ×4 (07:24→21:02)
[2020-10-17] MEDS: Formoterol/Mometasone 100-5 MCG 8.8 GM Inhaler IH SCH ×2 (07:24→21:02)
[2020-10-17] MEDS: Insulin Lispro 100 Unit/ML 3 ML KwikPen SUBCUT SCH ×4 (07:52→21:00)
[2020-10-17] MEDS: Empagliflozin 10 MG Tab PO SCH (09:04)
[2020-10-17] MEDS: Metoprolol Tartrate 25 MG Tab PO SCH ×2 (09:04→21:05)
[2020-10-17] MEDS: Furosemide 40 MG Tab PO SCH ×2 (09:04→15:01)
[2020-10-17] MEDS: Pramipexole 0.5 MG Tab PO SCH ×2 (09:05→21:03)
[2020-10-17] MEDS: OLANZapine 5 MG Tab PO SCH ×2 (09:05→21:04)
[2020-10-17] MEDS: Gabapentin 300 MG Cap PO SCH ×5 (09:05→21:03)
[2020-10-17] MEDS: Modafinil 100 MG Tab PO SCH ×2 (09:19→21:04)
[2020-10-17] MEDS: cefTRIAXone 1 GM in Sodium Chloride 0.9% 50 ML IV SCH (13:23)
--- NOTE | 2020-10-17 13:37 | PCM.PN ---
- General Info Date of Service: 10/17/20 Subjective Update: Ms. Machado used to experience symptoms of shortness of breath and also continues to require supplemental oxygen. Vital signs have otherwise been stable and she has remained afebrile. Functional Status: Reports: Tolerating Diet, Urinating - Review of Systems General: Reports: Weakness, Fatigue. Denies: Fever, Chills Pulmonary: Reports: Shortness of Breath, Cough, Sputum. Denies: Pleuritic Chest Pain, Hemoptysis, Wheezing Cardiovascular: Reports: Dyspnea on Exertion. Denies: Chest Pain, Palpitations, Orthopnea, PND, Edema, Lightheadedness Gastrointestinal: Reports: No Symptoms Genitourinary: Reports: No Symptoms - Patient Data Vitals - Most Recent: Last Vital Signs Temp 95.7 F L 10/17/20 10:28 Pulse 62 10/17/20 10:28 Resp 16 10/17/20 10:28 BP 116/68 10/17/20 10:28 Pulse Ox 97 10/17/20 10:28 Weight - Most Recent: 256 lb 3.187 oz I&O - Last 24 Hours: Intake & Output 10/16/20 10/17/20 10/17/20 22:59 06:59 14:59 Intake Total 500 1404 1030 Output Total 350 Balance 500 1054 1030 Lab Results Last 24 Hours: Laboratory Results - last 24 hr 10/16/20 10/16/20 10/16/20 Range/Units 10:36 10:36 10:36 WBC (4.5-11.0) K/uL RBC (3.30-5.50) M/uL Hgb (12.0-15.0) g/dL Hct (36.0-48.0) % MCV (80-98) fL MCH (27-31) pg MCHC (32-36) % Plt Count (150-400) K/uL Neut % (Auto) (36-66) % Lymph % (Auto) (24-44) % [place] % (Auto) (2-6) % Eos % (Auto) (2-4) % Baso % (Auto) (0-1) % PT (9.5-12.0) sec INR (0.80-1.20) Sodium (140-148) mmol/L Potassium (3.6-5.2) mmol/L Chloride (100-108) mmol/L Carbon Dioxide (21-32) mmol/L Anion Gap (5.0-14.0) mmol/L BUN (7-18) mg/dL Creatinine (0.6-1.0) mg/dL Est Cr Clr Drug Dosing mL/min Estimated GFR (MDRD) (>60) Glucose (74-106) mg/dL POC Glucose (74-106) MG/DL Lactic Acid 1.0 (0.4-2.0) mmol/L Calcium (8.5-10.1) mg/dL Magnesium (1.8-2.4) mg/dL Total Bilirubin (0.2-1.0) mg/dL AST (15-37) U/L ALT (12-78) U/L Alkaline Phosphatase (46-116) U/L C-Reactive Protein 11.99 H (0.0-0.3) mg/dL Total Protein (6.4-8.2) g/dL Albumin (3.4-5.0) g/dL Globulin (2.3-3.5) g/dL Albumin/Globulin Ratio (1.2-2.2) Procalcitonin 0.93 ng/mL 10/16/20 10/16/20 10/17/20 Range/Units 16:46 21:19 04:28 WBC 9.2 (4.5-11.0) K/uL RBC 3.76 (3.30-5.50) M/uL Hgb 11.3 L (12.0-15.0) g/dL Hct 37.3 (36.0-48.0) % MCV 99 H (80-98) fL MCH 30 (27-31) pg MCHC 30 L (32-36) % Plt Count 267 (150-400) K/uL Neut % (Auto) 78 H (36-66) % Lymph % (Auto) 12 L (24-44) % [place] % (Auto) 7 H (2-6) % Eos % (Auto) 3 (2-4) % Baso % (Auto) 0 (0-1) % PT (9.5-12.0) sec INR (0.80-1.20) Sodium (140-148) mmol/L Potassium (3.6-5.2) mmol/L Chloride (100-108) mmol/L Carbon Dioxide (21-32) mmol/L Anion Gap (5.0-14.0) mmol/L BUN (7-18) mg/dL Creatinine (0.6-1.0) mg/dL Est Cr Clr Drug Dosing mL/min Estimated GFR (MDRD) (>60) Glucose (74-106) mg/dL POC Glucose 132 H 71 L (74-106) MG/DL Lactic Acid (0.4-2.0) mmol/L Calcium (8.5-10.1) mg/dL Magnesium (1.8-2.4) mg/dL Total Bilirubin (0.2-1.0) mg/dL AST (15-37) U/L ALT (12-78) U/L Alkaline Phosphatase (46-116) U/L C-Reactive Protein (0.0-0.3) mg/dL Total Protein (6.4-8.2) g/dL Albumin (3.4-5.0) g/dL Globulin (2.3-3.5) g/dL Albumin/Globulin Ratio (1.2-2.2) Procalcitonin ng/mL 10/17/20 10/17/20 10/17/20 Range/Units 04:28 04:28 07:30 WBC (4.5-11.0) K/uL RBC (3.30-5.50) M/uL Hgb (12.0-15.0) g/dL Hct (36.0-48.0) % MCV (80-98) fL MCH (27-31) pg MCHC (32-36) % Plt Count (150-400) K/uL Neut % (Auto) (36-66) % Lymph % (Auto) (24-44) % [place] % (Auto) (2-6) % Eos % (Auto) (2-4) % Baso % (Auto) (0-1) % PT 21.2 H (9.5-12.0) sec INR 1.97 H (0.80-1.20) Sodium 145 (140-148) mmol/L Potassium 3.9 (3.6-5.2) mmol/L Chloride 105 (100-108) mmol/L Carbon Dioxide 27 (21-32) mmol/L Anion Gap 13.5 (5.0-14.0) mmol/L BUN 30 H (7-18) mg/dL Creatinine 1.4 H (0.6-1.0) mg/dL Est Cr Clr Drug Dosing 35.77 mL/min Estimated GFR (MDRD) 38 L (>60) Glucose 169 H (74-106) mg/dL POC Glucose 103 (74-106) MG/DL Lactic Acid (0.4-2.0) mmol/L Calcium 9.1 (8.5-10.1) mg/dL Magnesium 2.6 H (1.8-2.4) mg/dL Total Bilirubin 0.4 D (0.2-1.0) mg/dL AST 20 (15-37) U/L ALT 28 (12-78) U/L Alkaline Phosphatase 121 H (46-116) U/L C-Reactive Protein (0.0-0.3) mg/dL Total Protein 6.9 (6.4-8.2) g/dL Albumin 3.1 L (3.4-5.0) g/dL Globulin 3.8 H (2.3-3.5) g/dL Albumin/Globulin Ratio 0.8 L (1.2-2.2) Procalcitonin ng/mL 10/17/20 Range/Units 11:30 WBC (4.5-11.0) K/uL RBC (3.30-5.50) M/uL Hgb (12.0-15.0) g/dL Hct (36.0-48.0) % MCV (80-98) fL MCH (27-31) pg MCHC (32-36) % Plt Count (150-400) K/uL Neut % (Auto) (36-66) % Lymph % (Auto) (24-44) % [place] % (Auto) (2-6) % Eos % (Auto) (2-4) % Baso % (Auto) (0-1) % PT (9.5-12.0) sec INR (0.80-1.20) Sodium (140-148) mmol/L Potassium (3.6-5.2) mmol/L Chloride (100-108) mmol/L Carbon Dioxide (21-32) mmol/L Anion Gap (5.0-14.0) mmol/L BUN (7-18) mg/dL Creatinine (0.6-1.0) mg/dL Est Cr Clr Drug Dosing mL/min Estimated GFR (MDRD) (>60) Glucose (74-106) mg/dL POC Glucose 105 (74-106) MG/DL Lactic Acid (0.4-2.0) mmol/L Calcium (8.5-10.1) mg/dL Magnesium (1.8-2.4) mg/dL Total Bilirubin (0.2-1.0) mg/dL AST (15-37) U/L ALT (12-78) U/L Alkaline Phosphatase (46-116) U/L C-Reactive Protein (0.0-0.3) mg/dL Total Protein (6.4-8.2) g/dL Albumin (3.4-5.0) g/dL Globulin (2.3-3.5) g/dL Albumin/Globulin Ratio (1.2-2.2) Procalcitonin ng/mL Med Orders - Current: Current Medications Acetaminophen (Acetaminophen 325 Mg Tab) 650 mg PO Q4H PRN PRN Reason: Pain (Mild 1-3)/fever Hydrocodone Bitart/Acetaminophen (Acetaminophen/Hydrocodone 325-10 Mg Tab) 1 tab PO Q4H PRN PRN Reason: Pain Last Admin: 10/16/20 21:16 Dose: 1 tab Documented by: Albuterol (Albuterol 0.083% 2.5 Mg/3 Ml Neb Soln) 2.5 mg NEB Q4H PRN PRN Reason: Shortness Of Breath/wheezing Albuterol/Ipratropium (Albuterol/Ipratropium 3.0-0.5 Mg/3 Ml Neb Soln) 3 ml NEB QIDRT [facility] Last Admin: 10/17/20 11:00 Dose: 3 ml Documented by: Cyclobenzaprine HCl (Cyclobenzaprine 10 Mg Tab) 10 mg PO BEDTIME [facility] Last Admin: 10/16/20 21:04 Dose: 10 mg Documented by: Dextrose (Glucose Gel 15 Gm In 37.5 Gm Tube) 15 gm PO ONETIME PRN PRN Reason: Hypoglycemia Dextrose/Water (50% Dextrose In Water 50 Ml Syringe) 50 ml IV ONETIME PRN PRN Reason: Hypoglycemia Furosemide (Furosemide 40 Mg Tab) 80 mg PO DAILY [facility] Last Admin: 10/17/20 09:04 Dose: 80 mg Documented by: Furosemide (Furosemide 40 Mg Tab) 40 mg PO DAILY@1500 [facility] Last Admin: 10/16/20 17:21 Dose: 40 mg Documented by: Gabapentin (Gabapentin 300 Mg Cap) 900 mg PO BID [facility] Last Admin: 10/17/20 09:19 Dose: 900 mg Documented by: Gabapentin (Gabapentin 300 Mg Cap) 300 mg PO DAILY@1400 [facility] Last Admin: 10/17/20 13:20 Dose: 300 mg Documented by: Doxycycline Hyclate 100 mg/ (Sodium Chloride) 100 mls @ 100 mls/hr IV Q12H [facility] Last Admin: 10/17/20 05:17 Dose: 100 mls/hr Documented by: Ceftriaxone Sodium 1 gm/ (Sodium Chloride) 50 mls @ 100 mls/hr IV Q24H [facility] Last Admin: 10/17/20 13:23 Dose: 100 mls/hr Documented by: Insulin Human Lispro (Insulin Lispro 100 Unit/Ml 3 Ml Kwikpen) 0 unit SUBCUT QIDACANDBED [facility]; Protocol Last Admin: 10/17/20 12:23 Dose: Not Given Documented by: Lorazepam (Lorazepam 0.5 Mg Tab) 0.5 mg PO BID [facility] Metoprolol Tartrate (Metoprolol Tartrate 25 Mg Tab) 25 mg PO BID [facility] Last Admin: 10/17/20 09:04 Dose: 25 mg Documented by: Modafinil (Modafinil 100 Mg Tab) 100 mg PO BID [facility] Last Admin: 10/17/20 09:19 Dose: 100 mg Documented by: Mometasone Furoate/Formoterol Fumar (Formoterol/Mometasone 100-5 Mcg 8.8 Gm Inhaler) 2 puff IH BIDRT [facility] Last Admin: 10/17/20 07:24 Dose: 2 puff Documented by: Nystatin (Nystatin Topical Powder 15 Gm Bottle) 0 gm TOP TID [facility] Olanzapine (Olanzapine 5 Mg Tab) 5 mg PO BID [facility] Last Admin: 10/17/20 09:05 Dose: 5 mg Documented by: Ondansetron HCl (Ondansetron 4 Mg/2 Ml Sdv) 4 mg IV Q4H PRN PRN Reason: Nausea/Vomiting Pantoprazole Sodium (Pantoprazole 40 Mg Tab.Cr) 40 mg PO DAILY [facility] Polyethylene Glycol (Polyethylene Glycol 3350 Powder 17 Gm Packet) 17 gm PO DAILY PRN PRN Reason: Constipation Pramipexole Dihydrochloride (Pramipexole 0.5 Mg Tab) 0.5 mg PO BID [facility] Last Admin: 10/17/20 09:05 Dose: 0.5 mg Documented by: Sodium Chloride (Sodium Chloride 0.9% 10 Ml Syringe) 10 ml FLUSH ASDIRECTED PRN PRN Reason: Keep Vein Open Warfarin Sodium (Warfarin 1 Mg Tab) 2 mg PO DAILY@1300 [facility] Last Admin: 10/17/20 13:20 Dose: 2 mg Documented by: Discontinued Medications Albuterol/Ipratropium (Albuterol/Ipratropium 4 Gm Inhalation [place]) 1 gm INH NOW STA Stop: 10/16/20 10:04 Last Admin: 10/16/20 10:30 Dose: 1 gram Documented by: Bumetanide (Bumetanide 1 Mg/4 Ml Mdv) 2 mg IVPUSH ONETIME ONE Stop: 10/16/20 12:36 Last Admin: 10/16/20 12:47 Dose: 2 mg Documented by: Fentanyl (Fentanyl 100 Mcg/2 Ml Sdv) 50 mcg IVPUSH ONETIME ONE Stop: 10/16/20 11:20 Last Admin: 10/16/20 11:31 Dose: 50 mcg Documented by: Gabapentin (Gabapentin 300 Mg Cap) 300 mg PO DAILY [facility] Last Admin: 10/17/20 09:16 Dose: Not Given Documented by: Gabapentin (Gabapentin 300 Mg Cap) 900 mg PO BEDTIME [facility] Last Admin: 10/16/20 21:04 Dose: 900 mg Documented by: Azithromycin 500 mg/ Sodium (Chloride) 250 mls @ 250 mls/hr IV ONETIME ONE Stop: 10/16/20 14:20 Last Admin: 10/16/20 14:25 Dose: 250 mls/hr Documented by: Ceftriaxone Sodium 1 gm/ (Sodium Chloride) 50 mls @ 100 mls/hr IV ONETIME ONE Stop: 10/16/20 13:50 Last Admin: 10/16/20 13:50 Dose: 100 mls/hr Documented by: Sodium Chloride (Normal Saline) 1,000 mls @ 100 mls/hr IV ASDIRECTED [facility] Last Admin: 10/17/20 04:21 Dose: 100 mls/hr Documented by: Lorazepam (Lorazepam 2 Mg/Ml Sdv) 1 mg IVPUSH ONETIME ONE Stop: 10/16/20 12:36 Last Admin: 10/16/20 12:47 Dose: 1 mg Documented by: Nitroglycerin (Nitroglycerin 0.4 Mg Tab.Sl) 0.4 mg SL ONETIME ONE Stop: 10/16/20 12:36 Last Admin: 10/16/20 12:47 Dose: 0.4 mg Documented by: Sodium Chloride (Sodium Chloride 0.9% 10 Ml Syringe) 10 ml FLUSH ASDIRECTED PRN PRN Reason: Keep Vein Open Last Admin: 10/16/20 12:30 Dose: 10 ml Documented by: Sodium Chloride (Sodium Chloride 0.9% 10 Ml Syringe) 10 ml FLUSH ASDIRECTED PRN PRN Reason: Keep Vein Open - Exam Quality Assessment: Supplemental Oxygen, DVT Prophylaxis General: Alert, Oriented, Cooperative, Mild Distress Lungs: Normal Respiratory Effort, Rales, Rhonchi. No: Crackles, Wheezing Cardiovascular: Regular Rate, Regular Rhythm, No Murmurs GI/Abdominal Exam: Soft, Non-Tender, No Organomegaly, No Distention Extremities: Non-Tender, No Pedal Edema - Patient Data Lab Results Last 24 hrs: Laboratory Results - last 24 hr 10/16/20 10/16/20 10/16/20 Range/Units 10:36 10:36 10:36 WBC (4.5-11.0) K/uL RBC (3.30-5.50) M/uL Hgb (12.0-15.0) g/dL Hct (36.0-48.0) % MCV (80-98) fL MCH (27-31) pg MCHC (32-36) % Plt Count (150-400) K/uL Neut % (Auto) (36-66) % Lymph % (Auto) (24-44) % [place] % (Auto) (2-6) % Eos % (Auto) (2-4) % Baso % (Auto) (0-1) % PT (9.5-12.0) sec INR (0.80-1.20) Sodium (140-148) mmol/L Potassium (3.6-5.2) mmol/L Chloride (100-108) mmol/L Carbon Dioxide (21-32) mmol/L Anion Gap (5.0-14.0) mmol/L BUN (7-18) mg/dL Creatinine (0.6-1.0) mg/dL Est Cr Clr Drug Dosing mL/min Estimated GFR (MDRD) (>60) Glucose (74-106) mg/dL POC Glucose (74-106) MG/DL Lactic Acid 1.0 (0.4-2.0) mmol/L Calcium (8.5-10.1) mg/dL Magnesium (1.8-2.4) mg/dL Total Bilirubin (0.2-1.0) mg/dL AST (15-37) U/L ALT (12-78) U/L Alkaline Phosphatase (46-116) U/L C-Reactive Protein 11.99 H (0.0-0.3) mg/dL Total Protein (6.4-8.2) g/dL Albumin (3.4-5.0) g/dL Globulin (2.3-3.5) g/dL Albumin/Globulin Ratio (1.2-2.2) Procalcitonin 0.93 ng/mL 10/16/20 10/16/20 10/17/20 Range/Units 16:46 21:19 04:28 WBC 9.2 (4.5-11.0) K/uL RBC 3.76 (3.30-5.50) M/uL Hgb 11.3 L (12.0-15.0) g/dL Hct 37.3 (36.0-48.0) % MCV 99 H (80-98) fL MCH 30 (27-31) pg MCHC 30 L (32-36) % Plt Count 267 (150-400) K/uL Neut % (Auto) 78 H (36-66) % Lymph % (Auto) 12 L (24-44) % [place] % (Auto) 7 H (2-6) % Eos % (Auto) 3 (2-4) % Baso % (Auto) 0 (0-1) % PT (9.5-12.0) sec INR (0.80-1.20) Sodium (140-148) mmol/L Potassium (3.6-5.2) mmol/L Chloride (100-108) mmol/L Carbon Dioxide (21-32) mmol/L Anion Gap (5.0-14.0) mmol/L BUN (7-18) mg/dL Creatinine (0.6-1.0) mg/dL Est Cr Clr Drug Dosing mL/min Estimated GFR (MDRD) (>60) Glucose (74-106) mg/dL POC Glucose 132 H 71 L (74-106) MG/DL Lactic Acid (0.4-2.0) mmol/L Calcium (8.5-10.1) mg/dL Magnesium (1.8-2.4) mg/dL Total Bilirubin (0.2-1.0) mg/dL AST (15-37) U/L ALT (12-78) U/L Alkaline Phosphatase (46-116) U/L C-Reactive Protein (0.0-0.3) mg/dL Total Protein (6.4-8.2) g/dL Albumin (3.4-5.0) g/dL Globulin (2.3-3.5) g/dL Albumin/Globulin Ratio (1.2-2.2) Procalcitonin ng/mL 10/17/20 10/17/20 10/17/20 Range/Units 04:28 04:28 07:30 WBC (4.5-11.0) K/uL RBC (3.30-5.50) M/uL Hgb (12.0-15.0) g/dL Hct (36.0-48.0) % MCV (80-98) fL MCH (27-31) pg MCHC (32-36) % Plt Count (150-400) K/uL Neut % (Auto) (36-66) % Lymph % (Auto) (24-44) % [place] % (Auto) (2-6) % Eos % (Auto) (2-4) % Baso % (Auto) (0-1) % PT 21.2 H (9.5-12.0) sec INR 1.97 H (0.80-1.20) Sodium 145 (140-148) mmol/L Potassium 3.9 (3.6-5.2) mmol/L Chloride 105 (100-108) mmol/L Carbon Dioxide 27 (21-32) mmol/L Anion Gap 13.5 (5.0-14.0) mmol/L BUN 30 H (7-18) mg/dL Creatinine 1.4 H (0.6-1.0) mg/dL Est Cr Clr Drug Dosing 35.77 mL/min Estimated GFR (MDRD) 38 L (>60) Glucose 169 H (74-106) mg/dL POC Glucose 103 (74-106) MG/DL Lactic Acid (0.4-2.0) mmol/L Calcium 9.1 (8.5-10.1) mg/dL Magnesium 2.6 H (1.8-2.4) mg/dL Total Bilirubin 0.4 D (0.2-1.0) mg/dL AST 20 (15-37) U/L ALT 28 (12-78) U/L Alkaline Phosphatase 121 H (46-116) U/L C-Reactive Protein (0.0-0.3) mg/dL Total Protein 6.9 (6.4-8.2) g/dL Albumin 3.1 L (3.4-5.0) g/dL Globulin 3.8 H (2.3-3.5) g/dL Albumin/Globulin Ratio 0.8 L (1.2-2.2) Procalcitonin ng/mL 10/17/20 Range/Units 11:30 WBC (4.5-11.0) K/uL RBC (3.30-5.50) M/uL Hgb (12.0-15.0) g/dL Hct (36.0-48.0) % MCV (80-98) fL MCH (27-31) pg MCHC (32-36) % Plt Count (150-400) K/uL Neut % (Auto) (36-66) % Lymph % (Auto) (24-44) % [place] % (Auto) (2-6) % Eos % (Auto) (2-4) % Baso % (Auto) (0-1) % PT (9.5-12.0) sec INR (0.80-1.20) Sodium (140-148) mmol/L Potassium (3.6-5.2) mmol/L Chloride (100-108) mmol/L Carbon Dioxide (21-32) mmol/L Anion Gap (5.0-14.0) mmol/L BUN (7-18) mg/dL Creatinine (0.6-1.0) mg/dL Est Cr Clr Drug Dosing mL/min Estimated GFR (MDRD) (>60) Glucose (74-106) mg/dL POC Glucose 105 (74-106) MG/DL Lactic Acid (0.4-2.0) mmol/L Calcium (8.5-10.1) mg/dL Magnesium (1.8-2.4) mg/dL Total Bilirubin (0.2-1.0) mg/dL AST (15-37) U/L ALT (12-78) U/L Alkaline Phosphatase (46-116) U/L C-Reactive Protein (0.0-0.3) mg/dL Total Protein (6.4-8.2) g/dL Albumin (3.4-5.0) g/dL Globulin (2.3-3.5) g/dL Albumin/Globulin Ratio (1.2-2.2) Procalcitonin ng/mL Result Diagrams: 10/17/20 04:28 10/17/20 04:28 Sepsis Event Note - Evaluation Sepsis Screening Result: No Definite Risk - Focused Exam Vital Signs: Vital Signs Temp Pulse Pulse Resp BP BP Pulse Ox 10/17/20 10:28 95.7 F L 62 16 116/68 97 10/17/20 09:04 62 131/72 10/17/20 07:52 131/72 10/17/20 07:24 62 10/17/20 07:10 95.5 F L 62 16 145/98 H 95 10/17/20 03:00 153/78 H 10/17/20 02:00 95.7 F L 60 17 172/89 H 95 - Problem List Review Problem List Initiated/Reviewed/Updated: Yes - My Orders Last 24 Hours: My Active Orders 10/16/20 14:33 Resuscitation Status Routine 10/16/20 16:16 Acetaminophen [TylenoL] 650 mg PO Q4H PRN Acetaminophen/HYDROcodone [[place]ower 325-10 MG] 1 tab PO Q4H PRN Albuterol [Proventil Neb Soln] 2.5 mg NEB Q4H PRN Dextrose 50% in Water 50 ml IV ONETIME PRN Dextrose [Glutose 15] 15 gm PO ONETIME PRN Ondansetron [Zofran] 4 mg IV Q4H PRN Sodium Chloride 0.9% [Saline Flush] 10 ml FLUSH ASDIRECTED PRN polyethylene glycoL 3350 [MiraLAX] 17 gm PO DAILY PRN 10/16/20 16:16 Patient Status [ADT] Routine Ambulate [RC] QID Diabetes Education [RC] Click to Edit Height and Weight [RC] 0500 Intake and Output [RC] QSHIFT Notify Provider Vital Signs [RC] ASDIRECTED Notify Provider [RC] .PRN Oxygen Therapy [RC] .PRN Peripheral IV Care [RC] Q12H RT Aerosol Therapy [RC] ASDIRECTED Up With Assistance [RC] ASDIRECTED Up to Chair [RC] QID Vital Signs [RC] Q4H CULTURE RESPIRATORY + SMEAR [RM] Stat Peripheral IV Insertion Adult [OM.PC] Routine 10/16/20 17:00 Doxycycline [Vibramycin] 100 mg Sodium Chloride 0.9% [Normal Saline] 100 ml IV Q12H Furosemide [Lasix] 40 mg PO DAILY@1500 Insulin Lispro [HumaLOG] See Protocol SUBCUT QIDACANDBED 10/16/20 21:00 Albuterol/Ipratropium [DuoNeb 3.0-0.5 MG/3 ML] 3 ml NEB QIDRT Cyclobenzaprine [Flexeril] 10 mg PO BEDTIME Metoprolol Tartrate [Lopressor] 25 mg PO BID Mometasone/Formoterol [Dulera 100-5 MCG] 2 puff IH BIDRT OLANZapine [ZyPREXA] 5 mg PO BID Pramipexole [Mirapex] 0.5 mg PO BID modafiniL [ProvigiL] 100 mg PO BID 10/17/20 09:00 Empagliflozin [Jardiance] 10 mg PO DAILY Furosemide [Lasix] 80 mg PO DAILY Gabapentin [Neurontin] 900 mg PO BID 10/17/20 13:00 Warfarin [Coumadin] 2 mg PO DAILY@1300 10/17/20 13:33 Convert IV to Saline Lock [OM.PC] Routine 10/17/20 13:45 Pantoprazole [ProTONIX] 40 mg PO DAILY 10/17/20 14:00 Gabapentin [Neurontin] 300 mg PO DAILY@1400 Nystatin [Nystop] See Dose Instructions TOP TID cefTRIAXone [Rocephin] 1 gm Sodium Chloride 0.9% [Normal Saline] 50 ml IV Q24H 10/17/20 16:30 GLUCOSE POC LAB TO COLLECT JPM [POC] QIDACANDBED 10/17/20 21:00 GLUCOSE POC LAB TO COLLECT JPM [POC] QIDACANDBED LORazepam [Ativan] 0.5 mg PO BID 10/18/20 05:00 BASIC METABOLIC PANEL,BMP [CHEM] Timed INR,PT,PROTHROMBIN TIME [COAG] Timed 10/18/20 07:30 GLUCOSE POC LAB TO COLLECT JPM [POC] QIDACANDBED 10/18/20 11:30 GLUCOSE POC LAB TO COLLECT JPM [POC] QIDACANDBED 10/18/20 16:30 GLUCOSE POC LAB TO COLLECT JPM [POC] QIDACANDBED 10/18/20 21:00 GLUCOSE POC LAB TO COLLECT JPM [POC] QIDACANDBED 10/19/20 07:30 GLUCOSE POC LAB TO COLLECT JPM [POC] QIDACANDBED 10/19/20 11:30 GLUCOSE POC LAB TO COLLECT JPM [POC] QIDACANDBED 10/19/20 16:30 GLUCOSE POC LAB TO COLLECT JPM [POC] QIDACANDBED 10/19/20 21:00 GLUCOSE POC LAB TO COLLECT JPM [POC] QIDACANDBED 10/20/20 07:30 GLUCOSE POC LAB TO COLLECT JPM [POC] QIDACANDBED 10/20/20 11:30 GLUCOSE POC LAB TO COLLECT JPM [POC] QIDACANDBED 10/20/20 16:30 GLUCOSE POC LAB TO COLLECT JPM [POC] QIDACANDBED 10/20/20 21:00 GLUCOSE POC LAB TO COLLECT JPM [POC] QIDACANDBED 10/21/20 07:30 GLUCOSE POC LAB TO COLLECT JPM [POC] QIDACANDBED 10/21/20 11:30 GLUCOSE POC LAB TO COLLECT JPM [POC] QIDACANDBED - Plan Plan:: ASSESSMENT AND PLAN RIGHT LUNG PNEUMONIA WITH HYPOXIA-stable since admission, continues to require supplemental oxygen -Blood cultures pending -Supplemental oxygen as needed -Nebulizer therapy as needed -IV antibiotic therapy with ceftriaxone and doxycycline pending culture results TYPE 2 DIABETES MELLITUS -Continue outpatient medications -4 times daily glucometers -Low-dose sliding scale Humalog HISTORY OF PAROXYSMAL ATRIAL FIBRILLATION-on long-term oral anticoagulation with warfarin -Continue usual dosing of warfarin -Recheck INR in a.m. MAINTENANCE ISSUES -DVT prophylaxis; current therapy with warfarin should provide adequate DVT prophylaxis -GI prophylaxis; not indicated -Higgins catheter; not indicated -Nutrition; consistent carbohydrate diet -Nicotine dependence; not required CODE STATUS-full code ADMISSION STATUS-patient will be admitted to inpatient status, expect at least a 2 night hospital stay for evaluation and management of problems as outlined above. At the time of this admission I do not reasonably expected evaluation and management of this problem will require more than a 96 hour hospital stay. DISPOSITION-anticipate discharge to home after the hospital stay.
[2020-10-17] MEDS: Pantoprazole 40 MG Tab.CR PO SCH (15:00)
[2020-10-17] MEDS: Nystatin Topical Powder 15 GM Bottle TOP SCH ×2 (15:01→21:03)
[2020-10-17] MEDS: Acetaminophen 325 MG Tab PO PRN (16:55)
[2020-10-17] MEDS: LORazepam 0.5 MG Tab PO SCH (21:02)
[2020-10-17] MEDS: Cyclobenzaprine 10 MG Tab PO SCH (21:03)
[2020-10-17] MEDS: traZODone 50 MG Tab PO PRN (21:45)
[2020-10-17] MEDS: Melatonin 3 MG Tab PO PRN (21:45)
[2020-10-18] MEDS: Doxycycline 100 MG in Sodium Chloride 0.9% 100 ML IV SCH ×2 (04:07→16:39)
[2020-10-18] MEDS: Albuterol/Ipratropium 3.0-0.5 MG/3 ML Neb Soln NEB SCH ×4 (07:15→20:19)
[2020-10-18] MEDS: Formoterol/Mometasone 100-5 MCG 8.8 GM Inhaler IH SCH ×2 (07:15→20:14)
[2020-10-18] MEDS: Insulin Lispro 100 Unit/ML 3 ML KwikPen SUBCUT SCH ×4 (07:56→21:27)
[2020-10-18] MEDS: Pantoprazole 40 MG Tab.CR PO SCH (08:01)
[2020-10-18] MEDS: Empagliflozin 10 MG Tab PO SCH (08:03)
[2020-10-18] MEDS: LORazepam 0.5 MG Tab PO SCH ×2 (08:03→20:20)
[2020-10-18] MEDS: Furosemide 40 MG Tab PO SCH ×2 (08:03→15:25)
[2020-10-18] MEDS: Metoprolol Tartrate 25 MG Tab PO SCH ×2 (08:04→20:21)
[2020-10-18] MEDS: Pramipexole 0.5 MG Tab PO SCH ×2 (08:04→20:23)
[2020-10-18] MEDS: Nystatin Topical Powder 15 GM Bottle TOP SCH ×3 (08:04→20:23)
[2020-10-18] MEDS: Gabapentin 300 MG Cap PO SCH ×3 (08:04→20:23)
[2020-10-18] MEDS: OLANZapine 5 MG Tab PO SCH ×2 (08:05→20:24)
[2020-10-18] MEDS: Modafinil 100 MG Tab PO SCH ×2 (08:05→20:27)
--- NOTE | 2020-10-18 13:55 | PCM.PN ---
- General Info Date of Service: 10/18/20 Subjective Update: Ms. Machado has been fairly stable over the last 24 hours, remains on supplemental oxygen. Cough remains nonproductive. She has been afebrile and hemodynamically stable. Functional Status: Reports: Tolerating Diet, Urinating - Review of Systems General: Reports: Weakness, Fatigue. Denies: Fever, Chills Pulmonary: Reports: Shortness of Breath, Cough. Denies: Pleuritic Chest Pain, Sputum, Hemoptysis, Wheezing Cardiovascular: Reports: Dyspnea on Exertion. Denies: Chest Pain, Palpitations, Orthopnea, PND, Edema, Lightheadedness Gastrointestinal: Reports: No Symptoms Genitourinary: Reports: No Symptoms - Patient Data Vitals - Most Recent: Last Vital Signs Temp 97.7 F 10/18/20 11:00 Pulse 66 10/18/20 13:34 Resp 20 10/18/20 13:34 BP 136/70 10/18/20 13:34 Pulse Ox 100 10/18/20 13:34 Weight - Most Recent: 258 lb 3.2 oz I&O - Last 24 Hours: Intake & Output 10/17/20 10/18/20 10/18/20 22:59 06:59 14:59 Intake Total 600 689 960 Output Total 1100 700 250 Balance -500 -11 710 Lab Results Last 24 Hours: Laboratory Results - last 24 hr 10/17/20 10/17/20 10/18/20 Range/Units 16:30 20:54 04:59 PT 16.6 H (9.5-12.0) sec INR 1.54 H (0.80-1.20) Sodium (140-148) mmol/L Potassium (3.6-5.2) mmol/L Chloride (100-108) mmol/L Carbon Dioxide (21-32) mmol/L Anion Gap (5.0-14.0) mmol/L BUN (7-18) mg/dL Creatinine (0.6-1.0) mg/dL Est Cr Clr Drug Dosing mL/min Estimated GFR (MDRD) (>60) Glucose (74-106) mg/dL POC Glucose 102 223 H (74-106) MG/DL Calcium (8.5-10.1) mg/dL 10/18/20 10/18/20 10/18/20 Range/Units 04:59 07:39 11:35 PT (9.5-12.0) sec INR (0.80-1.20) Sodium 148 (140-148) mmol/L Potassium 4.4 (3.6-5.2) mmol/L Chloride 108 (100-108) mmol/L Carbon Dioxide 27 (21-32) mmol/L Anion Gap 13.0 (5.0-14.0) mmol/L BUN 32 H (7-18) mg/dL Creatinine 1.3 H (0.6-1.0) mg/dL Est Cr Clr Drug Dosing 38.53 mL/min Estimated GFR (MDRD) 41 L (>60) Glucose 180 H (74-106) mg/dL POC Glucose 147 H 86 (74-106) MG/DL Calcium 9.0 (8.5-10.1) mg/dL Biju Results Last 24 Hours: Microbiology 10/16/20 14:00 Aerobic Blood Culture - Preliminary Blood - Venous NO GROWTH AFTER 1 DAY Anaerobic Blood Culture - Preliminary NO GROWTH AFTER 1 DAY 10/16/20 14:08 Aerobic Blood Culture - Preliminary Blood - Arm, Right NO GROWTH AFTER 1 DAY Anaerobic Blood Culture - Preliminary NO GROWTH AFTER 1 DAY Med Orders - Current: Current Medications Acetaminophen (Acetaminophen 325 Mg Tab) 650 mg PO Q4H PRN PRN Reason: Pain (Mild 1-3)/fever Last Admin: 10/17/20 16:55 Dose: 650 mg Documented by: Hydrocodone Bitart/Acetaminophen (Acetaminophen/Hydrocodone 325-10 Mg Tab) 1 tab PO Q4H PRN PRN Reason: Pain Last Admin: 10/16/20 21:16 Dose: 1 tab Documented by: Albuterol (Albuterol 0.083% 2.5 Mg/3 Ml Neb Soln) 2.5 mg NEB Q4H PRN PRN Reason: Shortness Of Breath/wheezing Last Admin: 10/18/20 13:33 Dose: 2.5 mg Documented by: Albuterol/Ipratropium (Albuterol/Ipratropium 3.0-0.5 Mg/3 Ml Neb Soln) 3 ml NEB QIDRT [facility]IS Last Admin: 10/18/20 11:03 Dose: 3 ml Documented by: Cyclobenzaprine HCl (Cyclobenzaprine 10 Mg Tab) 10 mg PO BEDTIME [facility] Last Admin: 10/17/20 21:03 Dose: 10 mg Documented by: Dextrose (Glucose Gel 15 Gm In 37.5 Gm Tube) 15 gm PO ONETIME PRN PRN Reason: Hypoglycemia Dextrose/Water (50% Dextrose In Water 50 Ml Syringe) 50 ml IV ONETIME PRN PRN Reason: Hypoglycemia Furosemide (Furosemide 40 Mg Tab) 80 mg PO DAILY [facility] Last Admin: 10/18/20 08:03 Dose: 80 mg Documented by: Furosemide (Furosemide 40 Mg Tab) 40 mg PO DAILY@1500 [facility] Last Admin: 10/17/20 15:01 Dose: 40 mg Documented by: Gabapentin (Gabapentin 300 Mg Cap) 900 mg PO BID [facility] Last Admin: 10/18/20 08:04 Dose: 900 mg Documented by: Gabapentin (Gabapentin 300 Mg Cap) 300 mg PO DAILY@1400 [facility] Last Admin: 10/18/20 13:38 Dose: 300 mg Documented by: Doxycycline Hyclate 100 mg/ (Sodium Chloride) 100 mls @ 100 mls/hr IV Q12H [facility] Last Admin: 10/18/20 04:07 Dose: 100 mls/hr Documented by: Ceftriaxone Sodium 1 gm/ (Sodium Chloride) 50 mls @ 100 mls/hr IV Q24H [facility] Last Admin: 10/17/20 13:23 Dose: 100 mls/hr Documented by: Insulin Human Lispro (Insulin Lispro 100 Unit/Ml 3 Ml Kwikpen) 0 unit SUBCUT QIDACANDBED [facility]; Protocol Last Admin: 10/18/20 12:02 Dose: Not Given Documented by: Lorazepam (Lorazepam 0.5 Mg Tab) 0.5 mg PO BID [facility] Last Admin: 10/18/20 08:03 Dose: 0.5 mg Documented by: Melatonin (Melatonin 3 Mg Tab) 9 mg PO BEDTIME PRN PRN Reason: Sleep Last Admin: 10/17/20 21:45 Dose: 9 mg Documented by: Metoprolol Tartrate (Metoprolol Tartrate 25 Mg Tab) 25 mg PO BID [facility] Last Admin: 10/18/20 08:04 Dose: 25 mg Documented by: Modafinil (Modafinil 100 Mg Tab) 100 mg PO BID [facility] Last Admin: 10/18/20 08:05 Dose: 100 mg Documented by: Mometasone Furoate/Formoterol Fumar (Formoterol/Mometasone 100-5 Mcg 8.8 Gm Inhaler) 2 puff IH BIDRT [facility] Last Admin: 10/18/20 07:15 Dose: 2 puff Documented by: Nystatin (Nystatin Topical Powder 15 Gm Bottle) 0 gm TOP TID [facility] Last Admin: 10/18/20 08:04 Dose: 1 applic Documented by: Olanzapine (Olanzapine 5 Mg Tab) 5 mg PO BID [facility] Last Admin: 10/18/20 08:05 Dose: 5 mg Documented by: Ondansetron HCl (Ondansetron 4 Mg/2 Ml Sdv) 4 mg IV Q4H PRN PRN Reason: Nausea/Vomiting Pantoprazole Sodium (Pantoprazole 40 Mg Tab.Cr) 40 mg PO DAILY@0730 [facility] Last Admin: 10/18/20 08:01 Dose: 40 mg Documented by: Polyethylene Glycol (Polyethylene Glycol 3350 Powder 17 Gm Packet) 17 gm PO DAILY PRN PRN Reason: Constipation Pramipexole Dihydrochloride (Pramipexole 0.5 Mg Tab) 0.5 mg PO BID [facility] Last Admin: 10/18/20 08:04 Dose: 0.5 mg Documented by: Sodium Chloride (Sodium Chloride 0.9% 10 Ml Syringe) 10 ml FLUSH ASDIRECTED PRN PRN Reason: Keep Vein Open Trazodone HCl (Trazodone 50 Mg Tab) 75 mg PO BEDTIME PRN PRN Reason: Sleep Last Admin: 10/17/20 21:45 Dose: 75 mg Documented by: Warfarin Sodium (Warfarin 1 Mg Tab) 4 mg PO DAILY@1300 [facility] Last Admin: 10/18/20 13:37 Dose: 4 mg Documented by: Discontinued Medications Albuterol/Ipratropium (Albuterol/Ipratropium 4 Gm Inhalation [place]) 1 gm INH NOW [facility] Stop: 10/16/20 10:04 Last Admin: 10/16/20 10:30 Dose: 1 gram Documented by: Bumetanide (Bumetanide 1 Mg/4 Ml Mdv) 2 mg IVPUSH ONETIME ONE Stop: 10/16/20 12:36 Last Admin: 10/16/20 12:47 Dose: 2 mg Documented by: Fentanyl (Fentanyl 100 Mcg/2 Ml Sdv) 50 mcg IVPUSH ONETIME ONE Stop: 10/16/20 11:20 Last Admin: 10/16/20 11:31 Dose: 50 mcg Documented by: Gabapentin (Gabapentin 300 Mg Cap) 300 mg PO DAILY [facility] Last Admin: 10/17/20 09:16 Dose: Not Given Documented by: Gabapentin (Gabapentin 300 Mg Cap) 900 mg PO BEDTIME [facility] Last Admin: 10/16/20 21:04 Dose: 900 mg Documented by: Azithromycin 500 mg/ Sodium (Chloride) 250 mls @ 250 mls/hr IV ONETIME ONE Stop: 10/16/20 14:20 Last Admin: 10/16/20 14:25 Dose: 250 mls/hr Documented by: Ceftriaxone Sodium 1 gm/ (Sodium Chloride) 50 mls @ 100 mls/hr IV ONETIME ONE Stop: 10/16/20 13:50 Last Admin: 10/16/20 13:50 Dose: 100 mls/hr Documented by: Sodium Chloride (Normal Saline) 1,000 mls @ 100 mls/hr IV ASDIRECTED [facility] Last Admin: 10/17/20 04:21 Dose: 100 mls/hr Documented by: Lorazepam (Lorazepam 2 Mg/Ml Sdv) 1 mg IVPUSH ONETIME ONE Stop: 10/16/20 12:36 Last Admin: 10/16/20 12:47 Dose: 1 mg Documented by: Nitroglycerin (Nitroglycerin 0.4 Mg Tab.Sl) 0.4 mg SL ONETIME ONE Stop: 10/16/20 12:36 Last Admin: 10/16/20 12:47 Dose: 0.4 mg Documented by: Sodium Chloride (Sodium Chloride 0.9% 10 Ml Syringe) 10 ml FLUSH ASDIRECTED PRN PRN Reason: Keep Vein Open Last Admin: 10/16/20 12:30 Dose: 10 ml Documented by: Sodium Chloride (Sodium Chloride 0.9% 10 Ml Syringe) 10 ml FLUSH ASDIRECTED PRN PRN Reason: Keep Vein Open Warfarin Sodium (Warfarin 1 Mg Tab) 2 mg PO DAILY@1300 [facility] Last Admin: 10/17/20 13:20 Dose: 2 mg Documented by: - Exam Quality Assessment: Supplemental Oxygen, DVT Prophylaxis General: Alert, Oriented, Cooperative, Mild Distress Lungs: Normal Respiratory Effort, Decreased Breath Sounds. No: Crackles, Rales, Rhonchi, Wheezing Cardiovascular: Regular Rate, Regular Rhythm, No Murmurs GI/Abdominal Exam: Soft, Non-Tender, No Organomegaly, No Distention Extremities: Non-Tender, No Pedal Edema - Patient Data Lab Results Last 24 hrs: Laboratory Results - last 24 hr 10/17/20 10/17/20 10/18/20 Range/Units 16:30 20:54 04:59 PT 16.6 H (9.5-12.0) sec INR 1.54 H (0.80-1.20) Sodium (140-148) mmol/L Potassium (3.6-5.2) mmol/L Chloride (100-108) mmol/L Carbon Dioxide (21-32) mmol/L Anion Gap (5.0-14.0) mmol/L BUN (7-18) mg/dL Creatinine (0.6-1.0) mg/dL Est Cr Clr Drug Dosing mL/min Estimated GFR (MDRD) (>60) Glucose (74-106) mg/dL POC Glucose 102 223 H (74-106) MG/DL Calcium (8.5-10.1) mg/dL 10/18/20 10/18/20 10/18/20 Range/Units 04:59 07:39 11:35 PT (9.5-12.0) sec INR (0.80-1.20) Sodium 148 (140-148) mmol/L Potassium 4.4 (3.6-5.2) mmol/L Chloride 108 (100-108) mmol/L Carbon Dioxide 27 (21-32) mmol/L Anion Gap 13.0 (5.0-14.0) mmol/L BUN 32 H (7-18) mg/dL Creatinine 1.3 H (0.6-1.0) mg/dL Est Cr Clr Drug Dosing 38.53 mL/min Estimated GFR (MDRD) 41 L (>60) Glucose 180 H (74-106) mg/dL POC Glucose 147 H 86 (74-106) MG/DL Calcium 9.0 (8.5-10.1) mg/dL Result Diagrams: 10/17/20 04:28 10/18/20 04:59 Biju Results Last 24 hrs: Microbiology 10/16/20 14:00 Aerobic Blood Culture - Preliminary Blood - Venous NO GROWTH AFTER 1 DAY Anaerobic Blood Culture - Preliminary NO GROWTH AFTER 1 DAY 10/16/20 14:08 Aerobic Blood Culture - Preliminary Blood - Arm, Right NO GROWTH AFTER 1 DAY Anaerobic Blood Culture - Preliminary NO GROWTH AFTER 1 DAY Sepsis Event Note - Evaluation Sepsis Screening Result: No Definite Risk - Focused Exam Vital Signs: Vital Signs Temp Pulse Pulse Resp BP BP Pulse Ox 10/18/20 13:34 66 20 136/70 100 10/18/20 11:00 97.7 F 68 18 142/70 H 96 10/18/20 08:04 61 135/65 10/18/20 07:25 97.4 F 61 18 135/65 97 10/18/20 07:16 60 10/18/20 04:09 94.5 F L 61 18 122/63 95 - Problem List Review Problem List Initiated/Reviewed/Updated: Yes - My Orders Last 24 Hours: My Active Orders 10/17/20 13:33 Convert IV to Saline Lock [OM.PC] Routine 10/17/20 13:45 Pantoprazole [ProTONIX] 40 mg PO DAILY@0730 10/17/20 14:00 Gabapentin [Neurontin] 300 mg PO DAILY@1400 Nystatin [Nystop] See Dose Instructions TOP TID cefTRIAXone [Rocephin] 1 gm Sodium Chloride 0.9% [Normal Saline] 50 ml IV Q24H 10/17/20 21:00 LORazepam [Ativan] 0.5 mg PO BID 10/18/20 11:30 GLUCOSE POC LAB TO COLLECT JPM [POC] QIDACANDBED 10/18/20 12:29 CULTURE RESPIRATORY + SMEAR [RM] Stat 10/18/20 13:00 Warfarin [Coumadin] 4 mg PO DAILY@1300 10/18/20 16:30 GLUCOSE POC LAB TO COLLECT JPM [POC] QIDACANDBED 10/18/20 21:00 GLUCOSE POC LAB TO COLLECT JPM [POC] QIDACANDBED 10/19/20 05:00 INR,PT,PROTHROMBIN TIME [COAG] Timed 10/19/20 07:30 GLUCOSE POC LAB TO COLLECT JPM [POC] QIDACANDBED 10/19/20 11:30 GLUCOSE POC LAB TO COLLECT JPM [POC] QIDACANDBED 10/19/20 16:30 GLUCOSE POC LAB TO COLLECT JPM [POC] QIDACANDBED 10/19/20 21:00 GLUCOSE POC LAB TO COLLECT JPM [POC] QIDACANDBED 10/20/20 07:30 GLUCOSE POC LAB TO COLLECT JPM [POC] QIDACANDBED 10/20/20 11:30 GLUCOSE POC LAB TO COLLECT JPM [POC] QIDACANDBED 10/20/20 16:30 GLUCOSE POC LAB TO COLLECT JPM [POC] QIDACANDBED 10/20/20 21:00 GLUCOSE POC LAB TO COLLECT JPM [POC] QIDACANDBED 10/21/20 07:30 GLUCOSE POC LAB TO COLLECT JPM [POC] QIDACANDBED 10/21/20 11:30 GLUCOSE POC LAB TO COLLECT JPM [POC] QIDACANDBED - Plan Plan:: ASSESSMENT AND PLAN RIGHT LUNG PNEUMONIA WITH HYPOXIA-stable since admission, continues to require supplemental oxygen -Blood cultures pending -Supplemental oxygen as needed -Nebulizer therapy as needed -IV antibiotic therapy with ceftriaxone and doxycycline pending culture results TYPE 2 DIABETES MELLITUS -Continue outpatient medications -4 times daily glucometers -Low-dose sliding scale Humalog HISTORY OF PAROXYSMAL ATRIAL FIBRILLATION-on long-term oral anticoagulation with warfarin -Continue usual dosing of warfarin -Recheck INR in a.m. MAINTENANCE ISSUES -DVT prophylaxis; current therapy with warfarin should provide adequate DVT p rophylaxis -GI prophylaxis; not indicated -Higgins catheter; not indicated -Nutrition; consistent carbohydrate diet -Nicotine dependence; not required CODE STATUS-full code ADMISSION STATUS-patient will be admitted to inpatient status, expect at least a 2 night hospital stay for evaluation and management of problems as outlined above. At the time of this admission I do not reasonably expected evaluation and management of this problem will require more than a 96 hour hospital stay. DISPOSITION-anticipate discharge to home after the hospital stay.
[2020-10-18] MEDS: Acetaminophen/HYDROcodone 325-10 MG Tab PO PRN (15:23)
[2020-10-18] MEDS: cefTRIAXone 1 GM in Sodium Chloride 0.9% 50 ML IV SCH (15:26)
[2020-10-18] MEDS: Cyclobenzaprine 10 MG Tab PO SCH (20:21)
[2020-10-19] MEDS: Melatonin 3 MG Tab PO PRN (00:20)
[2020-10-19] MEDS: traZODone 50 MG Tab PO PRN (00:21)
[2020-10-19] MEDS: Doxycycline 100 MG in Sodium Chloride 0.9% 100 ML IV SCH ×2 (04:42→17:30)
[2020-10-19] MEDS: Albuterol/Ipratropium 3.0-0.5 MG/3 ML Neb Soln NEB SCH ×4 (07:34→21:51)
[2020-10-19] MEDS: Formoterol/Mometasone 100-5 MCG 8.8 GM Inhaler IH SCH ×2 (07:34→21:54)
[2020-10-19] MEDS: Pantoprazole 40 MG Tab.CR PO SCH (07:48)
[2020-10-19] MEDS: Insulin Lispro 100 Unit/ML 3 ML KwikPen SUBCUT SCH ×4 (07:52→21:43)
[2020-10-19] MEDS: Modafinil 100 MG Tab PO SCH ×2 (09:01→21:53)
[2020-10-19] MEDS: LORazepam 0.5 MG Tab PO SCH ×2 (09:01→21:53)
[2020-10-19] MEDS: Gabapentin 300 MG Cap PO SCH ×3 (09:03→21:53)
[2020-10-19] MEDS: Empagliflozin 10 MG Tab PO SCH (09:05)
[2020-10-19] MEDS: Furosemide 40 MG Tab PO SCH ×2 (09:05→14:38)
[2020-10-19] MEDS: Metoprolol Tartrate 25 MG Tab PO SCH ×2 (09:06→21:55)
[2020-10-19] MEDS: Nystatin Topical Powder 15 GM Bottle TOP SCH ×3 (09:11→21:58)
[2020-10-19] MEDS: Pramipexole 0.5 MG Tab PO SCH ×2 (09:11→21:54)
[2020-10-19] MEDS: Acetaminophen/HYDROcodone 325-10 MG Tab PO PRN ×2 (10:05→19:44)
[2020-10-19] MEDS: OLANZapine 5 MG Tab PO SCH ×2 (10:05→21:53)
--- NOTE | 2020-10-19 13:10 | PCM.PN ---
- General Info Date of Service: 10/19/20 Subjective Update: Ms. Machado has remained stable over the last 24 hours, subjectively does not yet feel significantly improved. She continues to require supplemental oxygen and h as had ongoing difficulty with cough. Functional Status: Reports: Tolerating Diet, Ambulating, Urinating - Review of Systems General: Reports: Weakness, Fatigue. Denies: Fever, Chills Pulmonary: Reports: Shortness of Breath, Cough. Denies: Pleuritic Chest Pain, Sputum, Hemoptysis, Wheezing Cardiovascular: Reports: Dyspnea on Exertion. Denies: Chest Pain, Palpitations, Orthopnea, PND, Edema, Lightheadedness Gastrointestinal: Reports: No Symptoms Genitourinary: Reports: No Symptoms - Patient Data Vitals - Most Recent: Last Vital Signs Temp 95.5 F L 10/19/20 11:31 Pulse 73 10/19/20 11:31 Resp 20 10/19/20 11:31 BP 148/66 H 10/19/20 11:31 Pulse Ox 100 10/19/20 11:31 Weight - Most Recent: 248 lb 4.8 oz I&O - Last 24 Hours: Intake & Output 10/18/20 10/19/20 10/19/20 22:59 06:59 14:59 Intake Total 800 340 700 Output Total 1650 1100 1400 Balance -850 -760 -700 Lab Results Last 24 Hours: Laboratory Results - last 24 hr 10/18/20 10/18/20 10/18/20 Range/Units 11:30 16:23 16:30 PT (9.5-12.0) sec INR (0.80-1.20) POC Glucose TNP 161 H TNP 10/18/20 10/18/20 10/19/20 Range/Units 21:00 21:03 04:58 PT 16.7 H (9.5-12.0) sec INR 1.55 H (0.80-1.20) POC Glucose TNP 99 10/19/20 10/19/20 Range/Units 07:42 11:40 PT (9.5-12.0) sec INR (0.80-1.20) POC Glucose 130 H 74 Biju Results Last 24 Hours: Microbiology 10/16/20 14:00 Aerobic Blood Culture - Preliminary Blood - Venous NO GROWTH AFTER 2 DAYS Anaerobic Blood Culture - Preliminary NO GROWTH AFTER 2 DAYS 10/16/20 14:08 Aerobic Blood Culture - Preliminary Blood - Arm, Right NO GROWTH AFTER 2 DAYS Anaerobic Blood Culture - Preliminary NO GROWTH AFTER 2 DAYS Med Orders - Current: Current Medications Acetaminophen (Acetaminophen 325 Mg Tab) 650 mg PO Q4H PRN PRN Reason: Pain (Mild 1-3)/fever Last Admin: 10/17/20 16:55 Dose: 650 mg Documented by: Hydrocodone Bitart/Acetaminophen (Acetaminophen/Hydrocodone 325-10 Mg Tab) 1 tab PO Q4H PRN PRN Reason: Pain Last Admin: 10/19/20 10:05 Dose: 1 tab Documented by: Albuterol (Albuterol 0.083% 2.5 Mg/3 Ml Neb Soln) 2.5 mg NEB Q4H PRN PRN Reason: Shortness Of Breath/wheezing Last Admin: 10/18/20 13:33 Dose: 2.5 mg Documented by: Albuterol/Ipratropium (Albuterol/Ipratropium 3.0-0.5 Mg/3 Ml Neb Soln) 3 ml NEB QIDRT [facility] Last Admin: 10/19/20 10:48 Dose: 3 ml Documented by: Cyclobenzaprine HCl (Cyclobenzaprine 10 Mg Tab) 10 mg PO BEDTIME [facility] Last Admin: 10/18/20 20:21 Dose: 10 mg Documented by: Dextrose (Glucose Gel 15 Gm In 37.5 Gm Tube) 15 gm PO ONETIME PRN PRN Reason: Hypoglycemia Dextrose/Water (50% Dextrose In Water 50 Ml Syringe) 50 ml IV ONETIME PRN PRN Reason: Hypoglycemia Furosemide (Furosemide 40 Mg Tab) 80 mg PO DAILY [facility] Last Admin: 10/19/20 09:05 Dose: 80 mg Documented by: Furosemide (Furosemide 40 Mg Tab) 40 mg PO DAILY@1500 [facility] Last Admin: 10/18/20 15:25 Dose: 40 mg Documented by: Gabapentin (Gabapentin 300 Mg Cap) 900 mg PO BID [facility] Last Admin: 10/19/20 09:03 Dose: 900 mg Documented by: Gabapentin (Gabapentin 300 Mg Cap) 300 mg PO DAILY@1400 [facility] Last Admin: 10/18/20 13:38 Dose: 300 mg Documented by: Doxycycline Hyclate 100 mg/ (Sodium Chloride) 100 mls @ 100 mls/hr IV Q12H [facility] Last Admin: 10/19/20 04:42 Dose: 100 mls/hr Documented by: Ceftriaxone Sodium 1 gm/ (Sodium Chloride) 50 mls @ 100 mls/hr IV Q24H [facility] Last Admin: 10/18/20 15:26 Dose: 100 mls/hr Documented by: Insulin Human Lispro (Insulin Lispro 100 Unit/Ml 3 Ml Kwikpen) 0 unit SUBCUT QIDACANDBED [facility]; Protocol Last Admin: 10/19/20 11:50 Dose: Not Given Documented by: Lorazepam (Lorazepam 0.5 Mg Tab) 0.5 mg PO BID [facility] Last Admin: 10/19/20 09:01 Dose: 0.5 mg Documented by: Melatonin (Melatonin 3 Mg Tab) 9 mg PO BEDTIME PRN PRN Reason: Sleep Last Admin: 10/19/20 00:20 Dose: 9 mg Documented by: Metoprolol Tartrate (Metoprolol Tartrate 25 Mg Tab) 25 mg PO BID [facility] Last Admin: 10/19/20 09:06 Dose: 25 mg Documented by: Modafinil (Modafinil 100 Mg Tab) 100 mg PO BID [facility] Last Admin: 10/19/20 09:01 Dose: 100 mg Documented by: Mometasone Furoate/Formoterol Fumar (Formoterol/Mometasone 100-5 Mcg 8.8 Gm Inhaler) 2 puff IH BIDRT [facility] Last Admin: 10/19/20 07:34 Dose: 2 puff Documented by: Nystatin (Nystatin Topical Powder 15 Gm Bottle) 0 gm TOP TID [facility] Last Admin: 10/19/20 09:11 Dose: Not Given Documented by: Olanzapine (Olanzapine 5 Mg Tab) 5 mg PO BID [facility] Last Admin: 10/19/20 10:05 Dose: 5 mg Documented by: Ondansetron HCl (Ondansetron 4 Mg/2 Ml Sdv) 4 mg IV Q4H PRN PRN Reason: Nausea/Vomiting Pantoprazole Sodium (Pantoprazole 40 Mg Tab.Cr) 40 mg PO DAILY@0730 [facility] Last Admin: 10/19/20 07:48 Dose: 40 mg Documented by: Polyethylene Glycol (Polyethylene Glycol 3350 Powder 17 Gm Packet) 17 gm PO DAILY PRN PRN Reason: Constipation Pramipexole Dihydrochloride (Pramipexole 0.5 Mg Tab) 0.5 mg PO BID [facility] Last Admin: 10/19/20 09:11 Dose: 0.5 mg Documented by: Sodium Chloride (Sodium Chloride 0.9% 10 Ml Syringe) 10 ml FLUSH ASDIRECTED PRN PRN Reason: Keep Vein Open Trazodone HCl (Trazodone 50 Mg Tab) 75 mg PO BEDTIME PRN PRN Reason: Sleep Last Admin: 10/19/20 00:21 Dose: 75 mg Documented by: Warfarin Sodium (Warfarin 1 Mg Tab) 4 mg PO DAILY@1300 [facility] Last Admin: 10/19/20 12:25 Dose: 4 mg Documented by: Discontinued Medications Albuterol/Ipratropium (Albuterol/Ipratropium 4 Gm Inhalation [place]) 1 gm INH NOW STA Stop: 10/16/20 10:04 Last Admin: 10/16/20 10:30 Dose: 1 gram Documented by: Bumetanide (Bumetanide 1 Mg/4 Ml Mdv) 2 mg IVPUSH ONETIME ONE Stop: 10/16/20 12:36 Last Admin: 10/16/20 12:47 Dose: 2 mg Documented by: Fentanyl (Fentanyl 100 Mcg/2 Ml Sdv) 50 mcg IVPUSH ONETIME ONE Stop: 10/16/20 11:20 Last Admin: 10/16/20 11:31 Dose: 50 mcg Documented by: Gabapentin (Gabapentin 300 Mg Cap) 300 mg PO DAILY [facility] Last Admin: 10/17/20 09:16 Dose: Not Given Documented by: Gabapentin (Gabapentin 300 Mg Cap) 900 mg PO BEDTIME [facility] Last Admin: 10/16/20 21:04 Dose: 900 mg Documented by: Azithromycin 500 mg/ Sodium (Chloride) 250 mls @ 250 mls/hr IV ONETIME ONE Stop: 10/16/20 14:20 Last Admin: 10/16/20 14:25 Dose: 250 mls/hr Documented by: Ceftriaxone Sodium 1 gm/ (Sodium Chloride) 50 mls @ 100 mls/hr IV ONETIME ONE Stop: 10/16/20 13:50 Last Admin: 10/16/20 13:50 Dose: 100 mls/hr Documented by: Sodium Chloride (Normal Saline) 1,000 mls @ 100 mls/hr IV ASDIRECTED [facility] Last Admin: 10/17/20 04:21 Dose: 100 mls/hr Documented by: Lorazepam (Lorazepam 2 Mg/Ml Sdv) 1 mg IVPUSH ONETIME ONE Stop: 10/16/20 12:36 Last Admin: 10/16/20 12:47 Dose: 1 mg Documented by: Nitroglycerin (Nitroglycerin 0.4 Mg Tab.Sl) 0.4 mg SL ONETIME ONE Stop: 10/16/20 12:36 Last Admin: 10/16/20 12:47 Dose: 0.4 mg Documented by: Sodium Chloride (Sodium Chloride 0.9% 10 Ml Syringe) 10 ml FLUSH ASDIRECTED PRN PRN Reason: Keep Vein Open Last Admin: 10/16/20 12:30 Dose: 10 ml Documented by: Sodium Chloride (Sodium Chloride 0.9% 10 Ml Syringe) 10 ml FLUSH ASDIRECTED PRN PRN Reason: Keep Vein Open Warfarin Sodium (Warfarin 1 Mg Tab) 2 mg PO DAILY@1300 [facility] Last Admin: 10/17/20 13:20 Dose: 2 mg Documented by: - Exam Quality Assessment: Supplemental Oxygen, DVT Prophylaxis General: Alert, Oriented, Cooperative, Moderate Distress Lungs: Decreased Breath Sounds, Rhonchi, Wheezing. No: Crackles, Rales Cardiovascular: Regular Rate, No Murmurs, Irregular Rhythm GI/Abdominal Exam: Soft, Non-Tender, No Organomegaly, No Distention Extremities: Non-Tender, No Pedal Edema - Patient Data Lab Results Last 24 hrs: Laboratory Results - last 24 hr 10/18/20 10/18/20 10/18/20 Range/Units 11:30 16:23 16:30 PT (9.5-12.0) sec INR (0.80-1.20) POC Glucose TNP 161 H TNP 10/18/20 10/18/20 10/19/20 Range/Units 21:00 21:03 04:58 PT 16.7 H (9.5-12.0) sec INR 1.55 H (0.80-1.20) POC Glucose TNP 99 10/19/20 10/19/20 Range/Units 07:42 11:40 PT (9.5-12.0) sec INR (0.80-1.20) POC Glucose 130 H 74 Result Diagrams: 10/17/20 04:28 10/18/20 04:59 Biju Results Last 24 hrs: Microbiology 10/16/20 14:00 Aerobic Blood Culture - Preliminary Blood - Venous NO GROWTH AFTER 2 DAYS Anaerobic Blood Culture - Preliminary NO GROWTH AFTER 2 DAYS 10/16/20 14:08 Aerobic Blood Culture - Preliminary Blood - Arm, Right NO GROWTH AFTER 2 DAYS Anaerobic Blood Culture - Preliminary NO GROWTH AFTER 2 DAYS Sepsis Event Note - Evaluation Sepsis Screening Result: No Definite Risk - Focused Exam Vital Signs: Vital Signs Temp Pulse Pulse Resp BP BP BP 10/19/20 11:31 95.5 F L 73 20 148/66 H 10/19/20 09:06 74 156/66 H 10/19/20 07:25 95.5 F L 61 16 136/72 10/19/20 04:00 96.0 F L 64 16 135/87 Pulse Ox 10/19/20 11:31 100 10/19/20 09:06 10/19/20 07:25 96 10/19/20 04:00 96 - Problem List Review Problem List Initiated/Reviewed/Updated: Yes - My Orders Last 24 Hours: My Active Orders 10/18/20 12:29 CULTURE RESPIRATORY + SMEAR [RM] Stat 10/18/20 13:00 Warfarin [Coumadin] 4 mg PO DAILY@1300 10/19/20 16:30 GLUCOSE POC LAB TO COLLECT JPM [POC] QIDACANDBED 10/19/20 21:00 GLUCOSE POC LAB TO COLLECT JPM [POC] QIDACANDBED 10/20/20 05:00 INR,PT,PROTHROMBIN TIME [[facility]] Timed 10/20/20 07:30 GLUCOSE POC LAB TO COLLECT JPM [POC] QIDACANDBED 10/20/20 11:30 GLUCOSE POC LAB TO COLLECT JPM [POC] QIDACANDBED 10/20/20 16:30 GLUCOSE POC LAB TO COLLECT JPM [POC] QIDACANDBED 10/20/20 21:00 GLUCOSE POC LAB TO COLLECT JPM [POC] QIDACANDBED 10/21/20 07:30 GLUCOSE POC LAB TO COLLECT JPM [POC] QIDACANDBED 10/21/20 11:30 GLUCOSE POC LAB TO COLLECT JPM [POC] QIDACANDBED - Plan Plan:: ASSESSMENT AND PLAN RIGHT LUNG PNEUMONIA WITH HYPOXIA-stable since admission, continues to require supplemental oxygen. Far she has not noted significant improvement in symptoms. -Blood cultures pending -Supplemental oxygen as needed -Nebulizer therapy as needed -IV antibiotic therapy with ceftriaxone and doxycycline pending culture results TYPE 2 DIABETES MELLITUS -Continue outpatient medications -4 times daily glucometers -Low-dose sliding scale Humalog HISTORY OF PAROXYSMAL ATRIAL FIBRILLATION-on long-term oral anticoagulation with warfarin -Continue usual dosing of warfarin -Recheck INR in a.m. MAINTENANCE ISSUES -DVT prophylaxis; current therapy with warfarin should provide adequate DVT prophylaxis -GI prophylaxis; not indicated -Higgins catheter; not indicated -Nutrition; consistent carbohydrate diet -Nicotine dependence; not required CODE STATUS-full code ADMISSION STATUS-patient will be admitted to inpatient status, expect at least a 2 night hospital stay for evaluation and management of problems as outlined above. At the time of this admission I do not reasonably expected evaluation and management of this problem will require more than a 96 hour hospital stay. DISPOSITION-anticipate discharge to home after the hospital stay.
[2020-10-19] MEDS: cefTRIAXone 1 GM in Sodium Chloride 0.9% 50 ML IV SCH (13:49)
[2020-10-19] MEDS: Cyclobenzaprine 10 MG Tab PO SCH (21:53)
[2020-10-20] MEDS: Doxycycline 100 MG in Sodium Chloride 0.9% 100 ML IV SCH ×2 (05:07→16:52)
[2020-10-20] MEDS: Albuterol/Ipratropium 3.0-0.5 MG/3 ML Neb Soln NEB SCH ×4 (07:06→21:24)
[2020-10-20] MEDS: Formoterol/Mometasone 100-5 MCG 8.8 GM Inhaler IH SCH ×2 (07:06→21:26)
[2020-10-20] MEDS: Insulin Lispro 100 Unit/ML 3 ML KwikPen SUBCUT SCH ×4 (08:31→21:23)
[2020-10-20] MEDS: Empagliflozin 10 MG Tab PO SCH (08:32)
[2020-10-20] MEDS: Pantoprazole 40 MG Tab.CR PO SCH (08:32)
[2020-10-20] MEDS: OLANZapine 5 MG Tab PO SCH ×2 (08:33→21:26)
[2020-10-20] MEDS: Gabapentin 300 MG Cap PO SCH ×3 (08:33→21:25)
[2020-10-20] MEDS: Furosemide 40 MG Tab PO SCH ×3 (08:34→15:13)
[2020-10-20] MEDS: Pramipexole 0.5 MG Tab PO SCH ×2 (08:35→21:25)
[2020-10-20] MEDS: Metoprolol Tartrate 25 MG Tab PO SCH ×2 (08:35→21:27)
[2020-10-20] MEDS: Modafinil 100 MG Tab PO SCH ×2 (08:43→21:24)
[2020-10-20] MEDS: Acetaminophen 325 MG Tab PO PRN (08:43)
[2020-10-20] MEDS: LORazepam 0.5 MG Tab PO SCH ×2 (08:43→21:24)
[2020-10-20] MEDS: Nystatin Topical Powder 15 GM Bottle TOP SCH ×3 (08:44→21:26)
[2020-10-20] MEDS: cefTRIAXone 1 GM in Sodium Chloride 0.9% 50 ML IV SCH (13:32)
--- NOTE | 2020-10-20 15:43 | PCM.PN ---
- General Info Date of Service: 10/20/20 Subjective Update: Ms. Machado is experienced further improvement over the last 24 hours. She is no longer requiring supplemental oxygen and has adequate oxygenation on room air. Vital signs have been good and she has remained afebrile. Continues to experience mainly nonproductive cough and does experience symptoms of shortness of breath with activity. Functional Status: Reports: Tolerating Diet, Ambulating, Urinating - Review of Systems General: Reports: Weakness, Fatigue. Denies: Fever, Chills Pulmonary: Reports: Shortness of Breath, Cough, Wheezing. Denies: Pleuritic Chest Pain, Sputum, Hemoptysis Cardiovascular: Reports: Dyspnea on Exertion. Denies: Chest Pain, Palpitations, Orthopnea, PND, Edema, Lightheadedness Gastrointestinal: Reports: No Symptoms - Patient Data Vitals - Most Recent: Last Vital Signs Temp 96.8 F L 10/20/20 14:55 Pulse 65 10/20/20 14:55 Resp 16 10/20/20 14:55 BP 150/74 H 10/20/20 14:55 Pulse Ox 95 10/20/20 14:55 Weight - Most Recent: 251 lb 8.759 oz I&O - Last 24 Hours: Intake & Output 10/20/20 10/20/20 10/20/20 06:59 14:59 22:59 Intake Total 600 480 Output Total 2125 Balance 600 -1645 Lab Results Last 24 Hours: Laboratory Results - last 24 hr 10/19/20 10/19/20 10/20/20 Range/Units 16:04 20:53 04:28 PT 19.4 H (9.5-12.0) sec INR 1.80 H (0.80-1.20) POC Glucose 104 117 H (74-106) mg/dL 10/20/20 10/20/20 Range/Units 07:26 11:23 PT (9.5-12.0) sec INR (0.80-1.20) POC Glucose 114 H 114 H (74-106) mg/dL Biju Results Last 24 Hours: Microbiology 10/16/20 14:00 Aerobic Blood Culture - Preliminary Blood - Venous NO GROWTH AFTER 4 DAYS Anaerobic Blood Culture - Preliminary NO GROWTH AFTER 4 DAYS 10/16/20 14:08 Aerobic Blood Culture - Preliminary Blood - Arm, Right NO GROWTH AFTER 4 DAYS Anaerobic Blood Culture - Preliminary NO GROWTH AFTER 4 DAYS 10/18/20 12:29 Gram Stain - Final Sputum - Expectorated Respiratory Culture - Preliminary Med Orders - Current: Current Medications Acetaminophen (Acetaminophen 325 Mg Tab) 650 mg PO Q4H PRN PRN Reason: Pain (Mild 1-3)/fever Last Admin: 10/20/20 08:43 Dose: 650 mg Documented by: Hydrocodone Bitart/Acetaminophen (Acetaminophen/Hydrocodone 325-10 Mg Tab) 1 tab PO Q4H PRN PRN Reason: Pain Last Admin: 10/19/20 19:44 Dose: 1 tab Documented by: Albuterol (Albuterol 0.083% 2.5 Mg/3 Ml Neb Soln) 2.5 mg NEB Q4H PRN PRN Reason: Shortness Of Breath/wheezing Last Admin: 10/18/20 13:33 Dose: 2.5 mg Documented by: Albuterol/Ipratropium (Albuterol/Ipratropium 3.0-0.5 Mg/3 Ml Neb Soln) 3 ml NEB QIDRT [facility] Last Admin: 10/20/20 14:28 Dose: 3 ml Documented by: Cyclobenzaprine HCl (Cyclobenzaprine 10 Mg Tab) 10 mg PO BEDTIME [facility] Last Admin: 10/19/20 21:53 Dose: 10 mg Documented by: Dextrose (Glucose Gel 15 Gm In 37.5 Gm Tube) 15 gm PO ONETIME PRN PRN Reason: Hypoglycemia Dextrose/Water (50% Dextrose In Water 50 Ml Syringe) 50 ml IV ONETIME PRN PRN Reason: Hypoglycemia Furosemide (Furosemide 40 Mg Tab) 80 mg PO DAILY [facility] Last Admin: 10/20/20 08:34 Dose: 80 mg Documented by: Furosemide (Furosemide 40 Mg Tab) 40 mg PO DAILY@1500 [facility] Last Admin: 10/20/20 15:13 Dose: Not Given Documented by: Gabapentin (Gabapentin 300 Mg Cap) 900 mg PO BID [facility] Last Admin: 10/20/20 08:33 Dose: 900 mg Documented by: Gabapentin (Gabapentin 300 Mg Cap) 300 mg PO DAILY@1400 [facility] Last Admin: 10/20/20 13:32 Dose: 300 mg Documented by: Doxycycline Hyclate 100 mg/ (Sodium Chloride) 100 mls @ 100 mls/hr IV Q12H [facility] Last Admin: 10/20/20 05:07 Dose: 100 mls/hr Documented by: Ceftriaxone Sodium 1 gm/ (Sodium Chloride) 50 mls @ 100 mls/hr IV Q24H [facility] Last Admin: 10/20/20 13:32 Dose: 100 mls/hr Documented by: Insulin Human Lispro (Insulin Lispro 100 Unit/Ml 3 Ml Kwikpen) 0 unit SUBCUT QIDACANDBED [facility]; Protocol Last Admin: 10/20/20 12:05 Dose: Not Given Documented by: Lorazepam (Lorazepam 0.5 Mg Tab) 0.5 mg PO BID [facility] Last Admin: 10/20/20 08:43 Dose: 0.5 mg Documented by: Melatonin (Melatonin 3 Mg Tab) 9 mg PO BEDTIME PRN PRN Reason: Sleep Last Admin: 10/19/20 00:20 Dose: 9 mg Documented by: Metoprolol Tartrate (Metoprolol Tartrate 25 Mg Tab) 25 mg PO BID [facility] Last Admin: 10/20/20 08:35 Dose: 25 mg Documented by: Modafinil (Modafinil 100 Mg Tab) 100 mg PO BID [facility] Last Admin: 10/20/20 08:43 Dose: 100 mg Documented by: Mometasone Furoate/Formoterol Fumar (Formoterol/Mometasone 100-5 Mcg 8.8 Gm Inhaler) 2 puff IH BIDRT [facility] Last Admin: 10/20/20 07:06 Dose: 2 puff Documented by: Nystatin (Nystatin Topical Powder 15 Gm Bottle) 0 gm TOP TID [facility] Last Admin: 10/20/20 15:13 Dose: Not Given Documented by: Olanzapine (Olanzapine 5 Mg Tab) 5 mg PO BID [facility] Last Admin: 10/20/20 08:33 Dose: 5 mg Documented by: Ondansetron HCl (Ondansetron 4 Mg/2 Ml Sdv) 4 mg IV Q4H PRN PRN Reason: Nausea/Vomiting Pantoprazole Sodium (Pantoprazole 40 Mg Tab.Cr) 40 mg PO DAILY@0730 [facility] Last Admin: 10/20/20 08:32 Dose: 40 mg Documented by: Polyethylene Glycol (Polyethylene Glycol 3350 Powder 17 Gm Packet) 17 gm PO DAILY PRN PRN Reason: Constipation Pramipexole Dihydrochloride (Pramipexole 0.5 Mg Tab) 0.5 mg PO BID [facility] Last Admin: 10/20/20 08:35 Dose: 0.5 mg Documented by: Sodium Chloride (Sodium Chloride 0.9% 10 Ml Syringe) 10 ml FLUSH ASDIRECTED PRN PRN Reason: Keep Vein Open Trazodone HCl (Trazodone 50 Mg Tab) 75 mg PO BEDTIME PRN PRN Reason: Sleep Last Admin: 10/19/20 00:21 Dose: 75 mg Documented by: Warfarin Sodium (Warfarin 1 Mg Tab) 4 mg PO DAILY@1300 [facility] Last Admin: 10/20/20 13:32 Dose: 4 mg Documented by: Discontinued Medications Albuterol/Ipratropium (Albuterol/Ipratropium 4 Gm Inhalation [place]) 1 gm INH NOW STA Stop: 10/16/20 10:04 Last Admin: 10/16/20 10:30 Dose: 1 gram Documented by: Bumetanide (Bumetanide 1 Mg/4 Ml Mdv) 2 mg IVPUSH ONETIME ONE Stop: 10/16/20 12:36 Last Admin: 10/16/20 12:47 Dose: 2 mg Documented by: Fentanyl (Fentanyl 100 Mcg/2 Ml Sdv) 50 mcg IVPUSH ONETIME ONE Stop: 10/16/20 11:20 Last Admin: 10/16/20 11:31 Dose: 50 mcg Documented by: Gabapentin (Gabapentin 300 Mg Cap) 300 mg PO DAILY [facility] Last Admin: 10/17/20 09:16 Dose: Not Given Documented by: Gabapentin (Gabapentin 300 Mg Cap) 900 mg PO BEDTIME [facility] Last Admin: 10/16/20 21:04 Dose: 900 mg Documented by: Azithromycin 500 mg/ Sodium (Chloride) 250 mls @ 250 mls/hr IV ONETIME ONE Stop: 10/16/20 14:20 Last Admin: 10/16/20 14:25 Dose: 250 mls/hr Documented by: Ceftriaxone Sodium 1 gm/ (Sodium Chloride) 50 mls @ 100 mls/hr IV ONETIME ONE Stop: 10/16/20 13:50 Last Admin: 10/16/20 13:50 Dose: 100 mls/hr Documented by: Sodium Chloride (Normal Saline) 1,000 mls @ 100 mls/hr IV ASDIRECTED [facility] Last Admin: 10/17/20 04:21 Dose: 100 mls/hr Documented by: Lorazepam (Lorazepam 2 Mg/Ml Sdv) 1 mg IVPUSH ONETIME ONE Stop: 10/16/20 12:36 Last Admin: 10/16/20 12:47 Dose: 1 mg Documented by: Nitroglycerin (Nitroglycerin 0.4 Mg Tab.Sl) 0.4 mg SL ONETIME ONE Stop: 10/16/20 12:36 Last Admin: 10/16/20 12:47 Dose: 0.4 mg Documented by: Sodium Chloride (Sodium Chloride 0.9% 10 Ml Syringe) 10 ml FLUSH ASDIRECTED PRN PRN Reason: Keep Vein Open Last Admin: 10/16/20 12:30 Dose: 10 ml Documented by: Sodium Chloride (Sodium Chloride 0.9% 10 Ml Syringe) 10 ml FLUSH ASDIRECTED PRN PRN Reason: Keep Vein Open Warfarin Sodium (Warfarin 1 Mg Tab) 2 mg PO DAILY@1300 [facility] Last Admin: 10/17/20 13:20 Dose: 2 mg Documented by: - Exam Quality Assessment: DVT Prophylaxis. No: Supplemental Oxygen General: Alert, Oriented, Cooperative, Mild Distress Lungs: Normal Respiratory Effort, Decreased Breath Sounds, Wheezing. No: Rales, Rhonchi Cardiovascular: Regular Rate, Regular Rhythm, No Murmurs GI/Abdominal Exam: Soft, Non-Tender, No Organomegaly, No Distention Extremities: Non-Tender, Pedal Edema - Patient Data Lab Results Last 24 hrs: Laboratory Results - last 24 hr 10/19/20 10/19/20 10/20/20 Range/Units 16:04 20:53 04:28 PT 19.4 H (9.5-12.0) sec INR 1.80 H (0.80-1.20) POC Glucose 104 117 H (74-106) mg/dL 10/20/20 10/20/20 Range/Units 07:26 11:23 PT (9.5-12.0) sec INR (0.80-1.20) POC Glucose 114 H 114 H (74-106) mg/dL Result Diagrams: 10/17/20 04:28 10/18/20 04:59 Biju Results Last 24 hrs: Microbiology 10/16/20 14:00 Aerobic Blood Culture - Preliminary Blood - Venous NO GROWTH AFTER 4 DAYS Anaerobic Blood Culture - Preliminary NO GROWTH AFTER 4 DAYS 10/16/20 14:08 Aerobic Blood Culture - Preliminary Blood - Arm, Right NO GROWTH AFTER 4 DAYS Anaerobic Blood Culture - Preliminary NO GROWTH AFTER 4 DAYS 10/18/20 12:29 Gram Stain - Final Sputum - Expectorated Respiratory Culture - Preliminary Sepsis Event Note - Evaluation Sepsis Screening Result: No Definite Risk - Focused Exam Vital Signs: Vital Signs Temp Pulse Pulse Resp BP BP Pulse Ox 10/20/20 14:55 96.8 F L 65 16 150/74 H 95 10/20/20 12:09 93 L 10/20/20 12:00 96.7 F L 62 16 131/80 97 10/20/20 08:35 67 147/66 H 10/20/20 08:21 95.7 F L 67 18 146/66 H 96 10/20/20 07:06 62 10/20/20 04:00 95.5 F L 65 18 154/69 H 95 - Problem List Review Problem List Initiated/Reviewed/Updated: Yes - My Orders Last 24 Hours: My Active Orders 10/20/20 16:30 GLUCOSE POC LAB TO COLLECT JPM [POC] QIDACANDBED 10/20/20 21:00 GLUCOSE POC LAB TO COLLECT JPM [POC] QIDACANDBED 10/21/20 05:00 INR,PT,PROTHROMBIN TIME [[facility]] Timed 10/21/20 07:30 GLUCOSE POC LAB TO COLLECT JPM [POC] QIDACANDBED 10/21/20 11:30 GLUCOSE POC LAB TO COLLECT JPM [POC] QIDACANDBED - Plan Plan:: ASSESSMENT AND PLAN RIGHT LUNG PNEUMONIA WITH HYPOXIA-stable since admission, less short of breath and less cough, not currently requiring supplemental oxygen -Blood cultures pending -Supplemental oxygen as needed -Nebulizer therapy as needed -IV antibiotic therapy with ceftriaxone and doxycycline pending culture results TYPE 2 DIABETES MELLITUS -Continue outpatient medications -4 times daily glucometers -Low-dose sliding scale Humalog HISTORY OF PAROXYSMAL ATRIAL FIBRILLATION-on long-term oral anticoagulation with warfarin -Continue usual dosing of warfarin -Recheck INR in a.m. MAINTENANCE ISSUES -DVT prophylaxis; current therapy with warfarin should provide adequate DVT prophylaxis -GI prophylaxis; not indicated -Higgins catheter; not indicated -Nutrition; consistent carbohydrate diet -Nicotine dependence; not required CODE STATUS-full code ADMISSION STATUS-patient will be admitted to inpatient status, expect at least a 2 night hospital stay for evaluation and management of problems as outlined above. At the time of this admission I do not reasonably expected evaluation and management of this problem will require more than a 96 hour hospital stay. DISPOSITION-anticipate discharge to home after the hospital stay.
[2020-10-20] MEDS: Acetaminophen/HYDROcodone 325-10 MG Tab PO PRN (17:59)
[2020-10-20] MEDS: Cyclobenzaprine 10 MG Tab PO SCH (21:25)
[2020-10-20] MEDS: Melatonin 3 MG Tab PO PRN (22:51)
[2020-10-20] MEDS: traZODone 50 MG Tab PO PRN (22:51)
[2020-10-21] MEDS: Acetaminophen/HYDROcodone 325-10 MG Tab PO PRN ×2 (02:35→09:42)
[2020-10-21] MEDS: Doxycycline 100 MG in Sodium Chloride 0.9% 100 ML IV SCH (04:28)
[2020-10-21] MEDS: Formoterol/Mometasone 100-5 MCG 8.8 GM Inhaler IH SCH (07:26)
[2020-10-21] MEDS: Albuterol/Ipratropium 3.0-0.5 MG/3 ML Neb Soln NEB SCH ×2 (07:26→11:15)
[2020-10-21] MEDS: Insulin Lispro 100 Unit/ML 3 ML KwikPen SUBCUT SCH ×2 (07:38→11:29)
[2020-10-21] MEDS: Pantoprazole 40 MG Tab.CR PO SCH (07:47)
[2020-10-21] MEDS: LORazepam 0.5 MG Tab PO SCH (08:35)
[2020-10-21] MEDS: Furosemide 40 MG Tab PO SCH (09:30)
[2020-10-21] MEDS: Pramipexole 0.5 MG Tab PO SCH (09:30)
[2020-10-21] MEDS: Gabapentin 300 MG Cap PO SCH (09:31)
[2020-10-21] MEDS: Empagliflozin 10 MG Tab PO SCH (09:31)
[2020-10-21] MEDS: Metoprolol Tartrate 25 MG Tab PO SCH (09:32)
[2020-10-21] MEDS: Nystatin Topical Powder 15 GM Bottle TOP SCH (09:33)
[2020-10-21] MEDS: OLANZapine 5 MG Tab PO SCH (09:33)
[2020-10-21] MEDS: Modafinil 100 MG Tab PO SCH (09:35)
--- NOTE | 2020-10-21 11:01 | PCM.DCSUM1 ---
Discharge Summary - Hospital Course Brief History: Ms. Machado is a 65-year-old woman who was admitted through the emergency department with progressive weakness, shortness of breath, hypoxia, secondary to underlying pneumonia and COPD exacerbation. - Discharge Data Discharge Date: 10/21/20 Discharge Disposition: Home, Self-Care 01 Condition: Fair - Referral to Home Health Primary Care Physician: PCP None - Discharge Diagnosis/Problem(s) (1) Community acquired pneumonia SNOMED Code(s): 250139695 ICD Code: J18.9 - PNEUMONIA, UNSPECIFIED ORGANISM Status: Acute Current Visit: Yes Qualifiers: Laterality: right Lung location: lower lobe of lung Qualified Code(s): J18.9 - Pneumonia, unspecified organism (2) Chronic atrial fibrillation SNOMED Code(s): 221453155 ICD Code: I48.20 - CHRONIC ATRIAL FIBRILLATION, UNSPECIFIED Status: Chronic Current Visit: No (3) Anticoagulant long-term use SNOMED Code(s): 772475915 ICD Code: Z79.01 - [employer] (CURRENT) USE OF ANTICOAGULANTS Status: Chronic Current Visit: No (4) Type 2 diabetes mellitus SNOMED Code(s): 15245905 ICD Code: E11.9 - TYPE 2 DIABETES MELLITUS WITHOUT COMPLICATIONS Status: Chronic Current Visit: No - Patient Summary/Data Hospital Course: Ms. Machado is a 65-year-old woman who was admitted through the emergency department with weakness and shortness of breath secondary to right lung pne umonia. She reports a history of increased shortness of breath over the past few weeks, significantly worse in the last 24 hours. She has had chills and sweats with shortness of breath and cough. This morning with her cough she did experience a small amount of hemoptysis. On evaluation in the emergency department she is noted to be hypoxic with elevation in white blood cell count. CT scan of the chest shows evidence of right lung infiltrate consistent with pneumonia. Blood cultures have been obtained and she was started on IV antibiotic therapy. On admission she was given IV fluids for hydration and continued on IV antibiotic therapy with ceftriaxone and doxycycline. IV fluids were discontinued the next morning. Cultures really grew nothing out other than a few yeast which were felt to represent colonization. INR levels were monitored because of her anticoagulation and she received daily dosing of warfarin. Follow-up INR level will be obtained on October 23. She gradu ally improved and was able to get off of supplemental oxygen prior to discharge overall energy level and appetite improved significantly. She remained mildly more short of breath and did have a nonproductive cough. Blood sugars remain fairly stable through hospitalization, she was treated with usual outpatient medications in addition to sliding scale Humalog. Activity will be as tolerated and she will remain on a diabetic diet. Follow-up appointment will be scheduled with primary care provider within 1 week. She will be continued on doxycycline 100 mg twice daily for an additional 4 days. - Patient Instructions Diet: Diabetic Diet Activity: As Tolerated Other/Special Instructions: Please schedule follow-up appointment with primary care provider within 1 week. Please schedule INR level for Friday, October 23. - Discharge Plan *PRESCRIPTION DRUG MONITORING PROGRAM REVIEWED*: Not Applicable *COPY OF PRESCRIPTION DRUG MONITORING REPORT IN PATIENT SUKHDEV: Not Applicable Prescriptions/Med Rec: Doxycycline [Vibra-Tabs] 100 mg PO Q12HR #8 tab Home Medications: Home Meds Celecoxib 1 tab PO DAILY PRN 06/03/18 [History] Cyclobenzaprine [Flexeril] 1 tab PO BEDTIME 06/03/18 [History] Furosemide 1 tab PO ASDIRECTED 06/03/18 [History] Modafinil [Provigil] 1 tab PO BID 06/03/18 [History] Pramipexole [Mirapex] 1 tab PO BID 06/03/18 [History] Warfarin Sodium [Jantoven] 1 each PO ASDIRECTED 06/03/18 [History] EPINEPHrine HCl in 0.9 % NaCL [Epinephrine 1 mg/10 ml-Ns Syr] 1 ea IM DAILY PRN 10/16/20 [History] Empagliflozin [Jardiance] 10 mg PO DAILY 10/16/20 [History] Fluticasone/Salmeterol [Advair 100-50] 1 puff INH BID 10/16/20 [History] Hydrocodone/Acetaminophen [Hydrocodon-Acetaminophn 10-325] 1 tab PO Q4H PRN 10/16/20 [History] Metoprolol Tartrate 25 mg PO BID 10/16/20 [History] OLANZapine [Olanzapine] 5 mg PO BID 10/16/20 [History] Gabapentin [Neurontin] 300 mg PO DAILY@1400 10/17/20 [History] Gabapentin [Neurontin] 900 mg PO BID 10/17/20 [History] Melatonin 20 mg PO BEDTIME PRN 10/17/20 [History] traZODone 75 mg PO BEDTIME PRN 10/17/20 [History] Doxycycline [Vibra-Tabs] 100 mg PO Q12HR #8 tab 10/21/20 [Rx] Patient Handouts: Community-Acquired Pneumonia, Adult, [id number] Referrals: Rhonda Lynch DO [Physician] - 10/30/20 1:30 pm (Please arrive 15 minutes early to register for your appointment.) - Discharge Summary/Plan Comment DC Time >30 min.: No - Patient Data Vitals - Most Recent: Last Vital Signs Temp 94.9 F L 10/21/20 07:34 Pulse 81 10/21/20 09:32 Resp 18 10/21/20 02:34 BP 126/64 10/21/20 09:32 Pulse Ox 96 10/21/20 07:34 Weight - Most Recent: 251 lb 8.759 oz I&O - Last 24 hours: Intake & Output 10/20/20 10/21/20 10/21/20 22:59 06:59 14:59 Intake Total 1200 Output Total 2075 700 250 Balance -2075 500 -250 Lab Results - Last 24 hrs: Laboratory Results - last 24 hr 10/20/20 10/20/20 10/20/20 Range/Units 11:23 16:44 21:06 PT (9.5-12.0) sec INR (0.80-1.20) POC Glucose 114 H 136 H 255 H (74-106) mg/dL 10/21/20 10/21/20 Range/Units 05:42 07:19 PT 18.8 H (9.5-12.0) sec INR 1.74 H (0.80-1.20) POC Glucose 124 H (74-106) mg/dL LOREN Results - Last 24 hrs: Microbiology 10/18/20 12:29 Gram Stain - Final Sputum - Expectorated Respiratory Culture - Final Yeast Isolated 10/16/20 14:00 Aerobic Blood Culture - Preliminary Blood - Venous NO GROWTH AFTER 4 DAYS Anaerobic Blood Culture - Preliminary NO GROWTH AFTER 4 DAYS 10/16/20 14:08 Aerobic Blood Culture - Preliminary Blood - Arm, Right NO GROWTH AFTER 4 DAYS Anaerobic Blood Culture - Preliminary NO GROWTH AFTER 4 DAYS Med Orders - Current: Current Medications Acetaminophen (Acetaminophen 325 Mg Tab) 650 mg PO Q4H PRN PRN Reason: Pain (Mild 1-3)/fever Last Admin: 10/20/20 08:43 Dose: 650 mg Documented by: Hydrocodone Bitart/Acetaminophen (Acetaminophen/Hydrocodone 325-10 Mg Tab) 1 tab PO Q4H PRN PRN Reason: Pain Last Admin: 10/21/20 09:42 Dose: 1 tab Documented by: Albuterol (Albuterol 0.083% 2.5 Mg/3 Ml Neb Soln) 2.5 mg NEB Q4H PRN PRN Reason: Shortness Of Breath/wheezing Last Admin: 10/18/20 13:33 Dose: 2.5 mg Documented by: Albuterol/Ipratropium (Albuterol/Ipratropium 3.0-0.5 Mg/3 Ml Neb Soln) 3 ml NEB QIDRT [facility] Last Admin: 10/21/20 07:26 Dose: 3 ml Documented by: Cyclobenzaprine HCl (Cyclobenzaprine 10 Mg Tab) 10 mg PO BEDTIME [facility] Last Admin: 10/20/20 21:25 Dose: 10 mg Documented by: Dextrose (Glucose Gel 15 Gm In 37.5 Gm Tube) 15 gm PO ONETIME PRN PRN Reason: Hypoglycemia Dextrose/Water (50% Dextrose In Water 50 Ml Syringe) 50 ml IV ONETIME PRN PRN Reason: Hypoglycemia Furosemide (Furosemide 40 Mg Tab) 80 mg PO DAILY [facility] Last Admin: 10/21/20 09:30 Dose: 80 mg Documented by: Furosemide (Furosemide 40 Mg Tab) 40 mg PO DAILY@1500 [facility] Last Admin: 10/20/20 15:13 Dose: Not Given Documented by: Gabapentin (Gabapentin 300 Mg Cap) 900 mg PO BID [facility] Last Admin: 10/21/20 09:31 Dose: 900 mg Documented by: Gabapentin (Gabapentin 300 Mg Cap) 300 mg PO DAILY@1400 [facility] Last Admin: 10/20/20 13:32 Dose: 300 mg Documented by: Doxycycline Hyclate 100 mg/ (Sodium Chloride) 100 mls @ 100 mls/hr IV Q12H [facility] Last Admin: 10/21/20 04:28 Dose: 100 mls/hr Documented by: Ceftriaxone Sodium 1 gm/ (Sodium Chloride) 50 mls @ 100 mls/hr IV Q24H [facility] Last Admin: 10/20/20 13:32 Dose: 100 mls/hr Documented by: Insulin Human Lispro (Insulin Lispro 100 Unit/Ml 3 Ml Kwikpen) 0 unit SUBCUT QIDACANDBED [facility]; Protocol Last Admin: 10/21/20 07:38 Dose: Not Given Documented by: Lorazepam (Lorazepam 0.5 Mg Tab) 0.5 mg PO BID [facility] Last Admin: 10/21/20 08:35 Dose: 0.5 mg Documented by: Melatonin (Melatonin 3 Mg Tab) 9 mg PO BEDTIME PRN PRN Reason: Sleep Last Admin: 10/20/20 22:51 Dose: 9 mg Documented by: Metoprolol Tartrate (Metoprolol Tartrate 25 Mg Tab) 25 mg PO BID [facility] Last Admin: 10/21/20 09:32 Dose: 25 mg Documented by: Modafinil (Modafinil 100 Mg Tab) 100 mg PO BID [facility] Last Admin: 10/21/20 09:35 Dose: 100 mg Documented by: Mometasone Furoate/Formoterol Fumar (Formoterol/Mometasone 100-5 Mcg 8.8 Gm Inhaler) 2 puff IH BIDRT [facility] Last Admin: 10/21/20 07:26 Dose: 2 puff Documented by: Nystatin (Nystatin Topical Powder 15 Gm Bottle) 0 gm TOP TID [facility] Last Admin: 10/21/20 09:33 Dose: 1 applic Documented by: Olanzapine (Olanzapine 5 Mg Tab) 5 mg PO BID [facility] Last Admin: 10/21/20 09:33 Dose: 5 mg Documented by: Ondansetron HCl (Ondansetron 4 Mg/2 Ml Sdv) 4 mg IV Q4H PRN PRN Reason: Nausea/Vomiting Pantoprazole Sodium (Pantoprazole 40 Mg Tab.Cr) 40 mg PO DAILY@0730 [facility] Last Admin: 10/21/20 07:47 Dose: 40 mg Documented by: Polyethylene Glycol (Polyethylene Glycol 3350 Powder 17 Gm Packet) 17 gm PO DAILY PRN PRN Reason: Constipation Pramipexole Dihydrochloride (Pramipexole 0.5 Mg Tab) 0.5 mg PO BID [facility] Last Admin: 10/21/20 09:30 Dose: 0.5 mg Documented by: Sodium Chloride (Sodium Chloride 0.9% 10 Ml Syringe) 10 ml FLUSH ASDIRECTED PRN PRN Reason: Keep Vein Open Trazodone HCl (Trazodone 50 Mg Tab) 75 mg PO BEDTIME PRN PRN Reason: Sleep Last Admin: 10/20/20 22:51 Dose: 75 mg Documented by: Warfarin Sodium (Warfarin 1 Mg Tab) 4 mg PO DAILY@1300 [facility] Last Admin: 10/20/20 13:32 Dose: 4 mg Documented by: Discontinued Medications Albuterol/Ipratropium (Albuterol/Ipratropium 4 Gm Inhalation [place]) 1 gm INH NOW STA Stop: 10/16/20 10:04 Last Admin: 10/16/20 10:30 Dose: 1 gram Documented by: Bumetanide (Bumetanide 1 Mg/4 Ml Mdv) 2 mg IVPUSH ONETIME ONE Stop: 10/16/20 12:36 Last Admin: 10/16/20 12:47 Dose: 2 mg Documented by: Fentanyl (Fentanyl 100 Mcg/2 Ml Sdv) 50 mcg IVPUSH ONETIME ONE Stop: 10/16/20 11:20 Last Admin: 10/16/20 11:31 Dose: 50 mcg Documented by: Gabapentin (Gabapentin 300 Mg Cap) 300 mg PO DAILY [facility] Last Admin: 10/17/20 09:16 Dose: Not Given Documented by: Gabapentin (Gabapentin 300 Mg Cap) 900 mg PO BEDTIME [facility] Last Admin: 10/16/20 21:04 Dose: 900 mg Documented by: Azithromycin 500 mg/ Sodium (Chloride) 250 mls @ 250 mls/hr IV ONETIME ONE Stop: 10/16/20 14:20 Last Admin: 10/16/20 14:25 Dose: 250 mls/hr Documented by: Ceftriaxone Sodium 1 gm/ (Sodium Chloride) 50 mls @ 100 mls/hr IV ONETIME ONE Stop: 10/16/20 13:50 Last Admin: 10/16/20 13:50 Dose: 100 mls/hr Documented by: Sodium Chloride (Normal Saline) 1,000 mls @ 100 mls/hr IV ASDIRECTED [facility] Last Admin: 10/17/20 04:21 Dose: 100 mls/hr Documented by: Lorazepam (Lorazepam 2 Mg/Ml Sdv) 1 mg IVPUSH ONETIME ONE Stop: 10/16/20 12:36 Last Admin: 10/16/20 12:47 Dose: 1 mg Documented by: Nitroglycerin (Nitroglycerin 0.4 Mg Tab.Sl) 0.4 mg SL ONETIME ONE Stop: 10/16/20 12:36 Last Admin: 10/16/20 12:47 Dose: 0.4 mg Documented by: Sodium Chloride (Sodium Chloride 0.9% 10 Ml Syringe) 10 ml FLUSH ASDIRECTED PRN PRN Reason: Keep Vein Open Last Admin: 10/16/20 12:30 Dose: 10 ml Documented by: Sodium Chloride (Sodium Chloride 0.9% 10 Ml Syringe) 10 ml FLUSH ASDIRECTED PRN PRN Reason: Keep Vein Open Warfarin Sodium (Warfarin 1 Mg Tab) 2 mg PO DAILY@1300 [facility] Last Admin: 10/17/20 13:20 Dose: 2 mg Documented by: - Exam Quality Assessment: Reports: DVT Prophylaxis General: Reports: Alert, Oriented, Cooperative, Mild Distress Lungs: Reports: Normal Respiratory Effort, Decreased Breath Sounds. Denies: Rales, Rhonchi, Wheezing Cardiovascular: Reports: Regular Rate, No Murmurs, Irregular Rhythm GI/Abdominal Exam: Soft, Non-Tender, No Organomegaly, No Distention Extremities: Non-Tender, No Pedal Edema *Q Meaningful Use (DIS) - VTE *Q VTE Pharmacological Contraindications *Q: High INR Value
== END 2020-10-21 13:36 | disposition home or self-care (01) | DRG 190 ==
LOC: JP.ED 09:15 → JP.MS 14:29
PROVIDERS: ADMIT Hospitalist; ATTEND Hospitalist
DX: J44.0 Chronic obstructive pulmonary disease with (acute) lower respiratory infection (principal); J18.9 Pneumonia, unspecified organism; I48.91 Unspecified atrial fibrillation; R04.2 Hemoptysis; Z68.41 Body mass index [BMI] 40.0-44.9, adult; K59.09 Other constipation; J44.1 Chronic obstructive pulmonary disease with (acute) exacerbation; E11.9 Type 2 diabetes mellitus without complications; H54.7 Unspecified visual loss; F32.9 Major depressive disorder, single episode, unspecified; G47.30 Sleep apnea, unspecified; B39.9 Histoplasmosis, unspecified; K52.9 Noninfective gastroenteritis and colitis, unspecified; K21.9 Gastro-esophageal reflux disease without esophagitis; M79.7 Fibromyalgia; K57.90 Diverticulosis of intestine, part unspecified, without perforation or abscess without bleeding; Z79.84 Long term (current) use of oral hypoglycemic drugs; M85.80 Other specified disorders of bone density and structure, unspecified site; G35 Multiple sclerosis; E66.9 Obesity, unspecified; Z96.659 Presence of unspecified artificial knee joint; I48.0 Paroxysmal atrial fibrillation; Z79.01 Long term (current) use of anticoagulants; Z79.899 Other long term (current) drug therapy; Z91.041 Radiographic dye allergy status; Z88.5 Allergy status to narcotic agent; Z88.8 Allergy status to other drugs, medicaments and biological substances; Z88.2 Allergy status to sulfonamides; Z91.048 Other nonmedicinal substance allergy status; Z87.440 Personal history of urinary (tract) infections; Z86.010 Personal history of colon polyps; Z90.89 Acquired absence of other organs; Z95.0 Presence of cardiac pacemaker; Z90.49 Acquired absence of other specified parts of digestive tract; Z90.710 Acquired absence of both cervix and uterus; Z20.822 Contact with and (suspected) exposure to COVID-19
CPT/HCPCS: 0241U; 36415; 71046; 71250; 80048; 80053; 82947; 82962; 83605; 83735; 83880; 84145; 84484; 85025; 85379; 85610; 86140; 87040; 87070; 87077; 87205; 93005; 94640; 96365; 96375; 99222; 99232; 99238; 99285; A9270-GY; J0456; J0696; J1815; J2060; J3010; J3490; J7030; J7050; J7620-GY

== ENCOUNTER 2021-09-17 19:31 | Emergency (ER) | payer MEDICARE, OTHER ==
[2021-09-17] MEDS ORDERED: Acetaminophen/HYDROcodone 325-5 MG Tab PO ONE (20:39)
== END 2021-09-17 22:31 | disposition home or self-care (01) ==
LOC: JP.ED 19:31
DX: S83.511A Sprain of anterior cruciate ligament of right knee, initial encounter (principal); S50.11XA Contusion of right forearm, initial encounter; S40.012A Contusion of left shoulder, initial encounter; I48.91 Unspecified atrial fibrillation; E11.9 Type 2 diabetes mellitus without complications; E66.9 Obesity, unspecified; Z68.41 Body mass index [BMI] 40.0-44.9, adult; Z91.041 Radiographic dye allergy status; Z88.5 Allergy status to narcotic agent; Z88.8 Allergy status to other drugs, medicaments and biological substances; Z88.2 Allergy status to sulfonamides; Z91.048 Other nonmedicinal substance allergy status; Z79.01 Long term (current) use of anticoagulants; Z79.899 Other long term (current) drug therapy; W18.30XA Fall on same level, unspecified, initial encounter
CPT/HCPCS: 73030-LT; 73090-26-RT; 73090-RT; 73562-26-RT; 73562-RT; 99283; 99284-25; A9270-GY

== ENCOUNTER 2022-01-07 18:17 | Emergency (ER) | payer MEDICARE, OTHER ==
[2022-01-07] MEDS ORDERED: HYDROmorphone 1 MG/ML Syringe IVPUSH ONE (18:41)
== END 2022-01-07 20:48 | disposition home or self-care (01) ==
LOC: JP.ED 18:17
DX: S50.02XA Contusion of left elbow, initial encounter (principal); R51.9 Headache, unspecified; M25.512 Pain in left shoulder; E11.9 Type 2 diabetes mellitus without complications; E66.9 Obesity, unspecified; K21.9 Gastro-esophageal reflux disease without esophagitis; Z68.36 Body mass index [BMI] 36.0-36.9, adult; Z91.041 Radiographic dye allergy status; Z88.5 Allergy status to narcotic agent; Z88.2 Allergy status to sulfonamides; Z88.8 Allergy status to other drugs, medicaments and biological substances; Z79.899 Other long term (current) drug therapy; W01.10XA Fall on same level from slipping, tripping and stumbling with subsequent striking against unspecified object, initial encounter
CPT/HCPCS: 70450; 72125; 73020-LT; 73070-LT; 96374; 99283; 99284-25; J1170

== ENCOUNTER 2024-12-13 11:24 | Emergency (ER) | payer MEDICARE, OTHER ==
[2024-12-13] MEDS: droPERidol 5 MG/2 ML SDV IVPUSH ONE (11:34)
[2024-12-13] MEDS: fentaNYL 100 MCG/2 ML SDV IVPUSH ONE (12:22)
[2024-12-13] MEDS: Bacitracin Oint 1 GM U/D Packet TOP ONE (12:27)
[2024-12-13] MEDS: Lidocaine 1% with EPINEPHrine 1:100,000 50 ML MDV SUBCUT STA (12:28)
[2024-12-13] MEDS: Lidocaine/Epineph/Tetracaine 3 ML Syringe TOP ONE (12:57)
[2024-12-13] MEDS: Diphtheria,Pertussis(Acell),Tetanus Vaccine 0.5 ML Syringe IM ONE (13:34)
== END 2024-12-13 14:28 | disposition home or self-care (01) ==
LOC: JP.ED 11:24
DX: S09.90XA Unspecified injury of head, initial encounter (principal); Z23 Encounter for immunization; K21.9 Gastro-esophageal reflux disease without esophagitis; E11.9 Type 2 diabetes mellitus without complications; E66.9 Obesity, unspecified; Z79.899 Other long term (current) drug therapy; Z88.8 Allergy status to other drugs, medicaments and biological substances; Z88.2 Allergy status to sulfonamides; Z91.048 Other nonmedicinal substance allergy status; Z88.5 Allergy status to narcotic agent; W01.0XXA Fall on same level from slipping, tripping and stumbling without subsequent striking against object, initial encounter
CPT/HCPCS: 70450; 70486; 90471; 90715; 96374; 96375; 99284; A9270; J1790; J3010